=== PATIENT | male | born 1935 | race Caucasian/White ===

== ENCOUNTER 2018-02-18 15:54 | Observation (INO) ==
--- NOTE | 2018-02-18 16:43 | ED ---
HPI General Chief Complaint: Neck Pain/Injury Stated Complaint: Diff swallowing Time Seen by Provider: 02/18/18 16:35 Source: patient Mode of arrival: ambulatory Limitations: no limitations History of Present Illness HPI Narrative: 82-year-old male complains of neck pain and trouble with swallowing.Patient states that his symptoms started about 6 weeks ago. Patient states that he has discomfort and upper neck area and pain with swallowing. Patient states that he has lost about 20 pounds for the past month. Patient denies any fever chills. Patient denies any chest pain or shortness of breath. Patient denies abdominal pain. Patient denies any dysuria frequency. Patient denies any focal weakness or numbness of the extremity. Patient history has history of abdominal wall hernia after abdominal surgery in the past. Patient denies history hypertension, diabetes, hyperlipidemia. Patient is a non-smoker. Patient denies any history of chewing tobacco or alcohol abuse. Patient denies any blood or mucus in the stool. MD complaint: Reports neck pain Onset (ago): week(s) Place: Reports home Severity: moderate Severity scale (1-10): 5 Quality: Reports dull and aching Duration: constant Relieving factors: none Exacerbating factors: none Associated symptoms: Reports none Treatments prior to arrival: Reports none Related Data Home Medications Medication Instructions Recorded Confirmed tyrosine 500 mg PO DAILY 02/18/18 02/18/18 Previous Rx's Medication Instructions Recorded aspirin 162 mg PO DAILY 30 Days #60 tab 02/21/18 methylprednisolone [Medrol (Sunil)] 4 mg PO PER PKG DIR #1 ea 02/21/18 Allergies Allergy/AdvReac Type Severity Reaction Status Date / Time No Known Allergies Allergy Verified 02/18/18 16:21 Review of Systems ROS: all other systems reviewed are negative PMFSH Medical History Medical History Thyroid activity decreased (Acute) Social History Social History Substance History: No History of Abuse Second Hand Smoke Exposure: No Smoking Status: Never smoker How Often Do You Have a Drink Containing Alcohol: Monthly or less Recent Travel in [facility] within the Last 8 Weeks: No Recent Out of Country Travel within the Last 8 Weeks: No Immunization History Tetanus Immunization: >5 Years Exam Narrative Exam Narrative: GENERAL: Well-nourished, well-developed patient. SKIN: Focused skin assessment warm/dry. HEAD: Normocephalic. EYES: No scleral icterus. No injection or drainage. NECK: Supple, trachea midline. No JVD or lymphadenopathy.Patient had mild tenderness on palpation of the neck area. No obvious mass noted. CARDIOVASCULAR: Regular rate and rhythm without murmurs, gallops, or rubs. RESPIRATORY: Breath sounds equal bilaterally. No accessory muscle use. GASTROINTESTINAL: Abdomen soft, non-tender, nondistended. MUSCULOSKELETAL: No cyanosis, or edema. BACK: Nontender without obvious deformity. No CVA tenderness. Neurologic exam: Patient is awake and alert oriented x3. Patient moves all extremity well. No obvious focal neurologic deficit. Course Initial Documented Vital Signs Temperature 97.5 F L 02/18/18 15:58 Pulse Rate 81 02/18/18 15:58 Respiratory Rate 20 02/18/18 15:58 Blood Pressure 145/81 H 02/18/18 15:58 Pulse Oximetry 98 02/18/18 15:58 Last Documented Vital Signs Temperature 98.1 F 02/22/18 07:22 Pulse Rate 54 L 02/22/18 07:22 Respiratory Rate 20 02/22/18 07:22 Blood Pressure 173/74 H 02/22/18 07:22 Pulse Oximetry 96 02/22/18 07:22 Medical Decision Making MDM Narrative Medical decision making narrative: 82-year-old male with neck pain and weight loss recently. CT scan showed neck mass. I spoke with ENT, Dr. Hudson. Patient will admit to medical service and ENT consultation. Clindamycin 900 mg IV given. Decadron [address] Hudson advised clindamycin 900 mg IV every 8 hours and Decadron 8 mg every 8 hour. Medical Screen Exam Complete: Yes Emergency Medical Condition: Yes Differential Diagnosis Differential Diagnosis: Differential diagnosis including esophageal dysmotility , neck mass Lab Data Lab results reviewed: Yes I reviewed the patient's lab results. Result diagrams: 02/19/18 06:30 02/19/18 06:30 Lab Results 02/18/18 02/18/18 02/18/18 Range/Units 17:15 17:15 17:15 WBC (4.0-11.0) th/mm3 RBC (4.50-5.90) mil/mm3 Hgb (13.0-17.0) gm/dL Hct (39.0-51.0) % MCV (80.0-100.0) fL MCH (27.0-34.0) pg MCHC (32.0-36.0) % RDW (11.6-17.2) % Plt Count (150-450) th/mm3 MPV (7.0-11.0) fL Neut % (Auto) (16.0-70.0) % Lymph % (Auto) (9.0-44.0) % [place] % (Auto) (0.0-8.0) % Eos % (Auto) (0.0-4.0) % Baso % (Auto) (0.0-2.0) % Neut # (Auto) (1.8-7.7) th/mm3 Lymph # (Auto) (1.0-4.8) th/mm3 [place] # (Auto) (0.0-0.9) th/mm3 Eos # (Auto) (0.0-0.4) th/mm3 Baso # (Auto) (0.0-0.2) th/mm3 WBC Differential Differential Comment PT 10.5 (9.8-11.6) sec INR 1.0 Ratio Sodium (136-145) meq/L Potassium (3.5-5.1) meq/L Chloride (98-107) meq/L Carbon Dioxide (21.0-32.0) meq/L Anion Gap (5-15) meq/L BUN (7-18) mg/dL Creatinine (0.60-1.30) mg/dL Estimated GFR (>89) mL/min Random Glucose (74-106) mg/dL Calcium (8.5-10.1) mg/dL Phosphorus 2.8 (2.5-4.9) mg/dL Magnesium 2.3 (1.5-2.5) mg/dL Total Bilirubin (0.2-1.0) mg/dL AST (15-37) U/L ALT (12-78) U/L Alkaline Phosphatase (45-117) U/L Total Creatine Kinase 84 (39-308) U/L Troponin I (0.02-0.05) ng/mL B-Natriuretic Peptide 65 (0-100) pg/mL Total Protein (6.4-8.2) g/dL Albumin (3.4-5.0) g/dL Triglycerides (42-150) mg/dL Cholesterol (120-200) mg/dL LDL Cholesterol, Calc (0-99) mg/dL HDL Cholesterol (40.0-60.0) mg/dL Cholesterol/HDL Ratio Ratio Thiamine (70-180) nmol/L Vitamin B12 (193-986) pg/mL TSH 0.534 (0.358-3.740) uIU/mL Free T4 (0.76-1.46) ng/dL Urine Color (Yellw/Straw) Urine Clarity (Clear) Urine pH (5.0-8.5) Ur Specific [place] (1.002-1.035) Urine Protein (Neg-Trace) mg/dL Urine Glucose (UA) (Negative) mg/dL Urine Ketones (Negative) mg/dL Urine Occult Blood (Negative) Urine Nitrate (Negative) Urine Bilirubin (Negative) Urine Urobilinogen (Less than 2) mg/dL Ur Leukocyte Esterase (Negative) Urine RBC (0-3) /hpf Urine WBC (0-5) /hpf Micro UA Comment Ur Microscopic Review Urine Culture Comments Misc Test Result 02/18/18 02/18/18 02/18/18 Range/Units 17:15 17:15 18:40 WBC 8.4 (4.0-11.0) th/mm3 RBC 3.86 L (4.50-5.90) mil/mm3 Hgb 13.3 (13.0-17.0) gm/dL Hct 37.8 L (39.0-51.0) % MCV 98.0 (80.0-100.0) fL MCH 34.4 H (27.0-34.0) pg MCHC 35.1 (32.0-36.0) % RDW 13.0 (11.6-17.2) % Plt Count 197 (150-450) th/mm3 MPV 7.0 (7.0-11.0) fL Neut % (Auto) 62.2 (16.0-70.0) % Lymph % (Auto) 23.0 (9.0-44.0) % [place] % (Auto) 8.9 H (0.0-8.0) % Eos % (Auto) 5.3 H (0.0-4.0) % Baso % (Auto) 0.6 (0.0-2.0) % Neut # (Auto) 5.2 (1.8-7.7) th/mm3 Lymph # (Auto) 1.9 (1.0-4.8) th/mm3 [place] # (Auto) 0.8 (0.0-0.9) th/mm3 Eos # (Auto) 0.4 (0.0-0.4) th/mm3 Baso # (Auto) 0.1 (0.0-0.2) th/mm3 WBC Differential . Differential Comment Auto diff final PT (9.8-11.6) sec INR Ratio Sodium 139 (136-145) meq/L Potassium 4.2 (3.5-5.1) meq/L Chloride 103 (98-107) meq/L Carbon Dioxide 26.7 (21.0-32.0) meq/L Anion Gap 9 (5-15) meq/L BUN 18 (7-18) mg/dL Creatinine 1.31 H (0.60-1.30) mg/dL Estimated GFR 53 L (>89) mL/min Random Glucose 90 (74-106) mg/dL Calcium 9.7 (8.5-10.1) mg/dL Phosphorus (2.5-4.9) mg/dL Magnesium (1.5-2.5) mg/dL Total Bilirubin 0.3 (0.2-1.0) mg/dL AST 20 (15-37) U/L ALT 19 (12-78) U/L Alkaline Phosphatase 84 (45-117) U/L Total Creatine Kinase (39-308) U/L Troponin I Less than 0.02 L (0.02-0.05) ng/mL B-Natriuretic Peptide (0-100) pg/mL Total Protein 7.0 (6.4-8.2) g/dL Albumin 3.6 (3.4-5.0) g/dL Triglycerides (42-150) mg/dL Cholesterol (120-200) mg/dL LDL Cholesterol, Calc (0-99) mg/dL HDL Cholesterol (40.0-60.0) mg/dL Cholesterol/HDL Ratio Ratio Thiamine (70-180) nmol/L Vitamin B12 (193-986) pg/mL TSH (0.358-3.740) uIU/mL Free T4 (0.76-1.46) ng/dL Urine Color Yellow (Yellw/Straw) Urine Clarity Hazy H (Clear) Urine pH 5.0 (5.0-8.5) Ur Specific [place] 1.019 (1.002-1.035) Urine Protein Negative (Neg-Trace) mg/dL Urine Glucose (UA) Negative (Negative) mg/dL Urine Ketones Trace H (Negative) mg/dL Urine Occult Blood Negative (Negative) Urine Nitrate Negative (Negative) Urine Bilirubin Negative (Negative) Urine Urobilinogen Less than 2 (Less than 2) mg/dL Ur Leukocyte Esterase Negative (Negative) Urine RBC Less than 1 (0-3) /hpf Urine WBC 1 (0-5) /hpf Micro UA Comment Culture not ind Ur Microscopic Review Not Reportable Urine Culture Comments Culture not ind Misc Test Result 02/19/18 02/19/18 02/19/18 Range/Units 06:30 06:30 13:06 WBC 3.1 L D (4.0-11.0) th/mm3 RBC 3.94 L (4.50-5.90) mil/mm3 Hgb 13.4 (13.0-17.0) gm/dL Hct 37.8 L (39.0-51.0) % MCV 96.1 (80.0-100.0) fL MCH 33.9 (27.0-34.0) pg MCHC 35.3 (32.0-36.0) % RDW 12.9 (11.6-17.2) % Plt Count 212 (150-450) th/mm3 MPV 7.1 (7.0-11.0) fL Neut % (Auto) 73.1 H (16.0-70.0) % Lymph % (Auto) 25.0 (9.0-44.0) % [place] % (Auto) 1.6 (0.0-8.0) % Eos % (Auto) 0.1 (0.0-4.0) % Baso % (Auto) 0.2 (0.0-2.0) % Neut # (Auto) 2.3 (1.8-7.7) th/mm3 Lymph # (Auto) 0.8 L (1.0-4.8) th/mm3 [place] # (Auto) 0.0 (0.0-0.9) th/mm3 Eos # (Auto) 0.0 (0.0-0.4) th/mm3 Baso # (Auto) 0.0 (0.0-0.2) th/mm3 WBC Differential . Differential Comment Auto diff final PT (9.8-11.6) sec INR Ratio Sodium 136 (136-145) meq/L Potassium 4.4 (3.5-5.1) meq/L Chloride 103 (98-107) meq/L Carbon Dioxide 24.7 (21.0-32.0) meq/L Anion Gap 8 (5-15) meq/L BUN 15 (7-18) mg/dL Creatinine 1.06 (0.60-1.30) mg/dL Estimated GFR 67 L (>89) mL/min Random Glucose 179 H (74-106) mg/dL Calcium 9.9 (8.5-10.1) mg/dL Phosphorus (2.5-4.9) mg/dL Magnesium (1.5-2.5) mg/dL Total Bilirubin (0.2-1.0) mg/dL AST (15-37) U/L ALT (12-78) U/L Alkaline Phosphatase (45-117) U/L Total Creatine Kinase (39-308) U/L Troponin I Less than 0.02 L (0.02-0.05) ng/mL B-Natriuretic Peptide (0-100) pg/mL Total Protein (6.4-8.2) g/dL Albumin (3.4-5.0) g/dL Triglycerides 63 (42-150) mg/dL Cholesterol 143 (120-200) mg/dL LDL Cholesterol, Calc 87 (0-99) mg/dL HDL Cholesterol 43.8 (40.0-60.0) mg/dL Cholesterol/HDL Ratio 3.26 Ratio Thiamine (70-180) nmol/L Vitamin B12 (193-986) pg/mL TSH 0.200 L (0.358-3.740) uIU/mL Free T4 (0.76-1.46) ng/dL Urine Color (Yellw/Straw) Urine Clarity (Clear) Urine pH (5.0-8.5) Ur Specific [place] (1.002-1.035) Urine Protein (Neg-Trace) mg/dL Urine Glucose (UA) (Negative) mg/dL Urine Ketones (Negative) mg/dL Urine Occult Blood (Negative) Urine Nitrate (Negative) Urine Bilirubin (Negative) Urine Urobilinogen (Less than 2) mg/dL Ur Leukocyte Esterase (Negative) Urine RBC (0-3) /hpf Urine WBC (0-5) /hpf Micro UA Comment Ur Microscopic Review Urine Culture Comments Misc Test Result 02/20/18 02/20/18 02/20/18 Range/Units 09:10 09:10 15:50 WBC (4.0-11.0) th/mm3 RBC (4.50-5.90) mil/mm3 Hgb (13.0-17.0) gm/dL Hct (39.0-51.0) % MCV (80.0-100.0) fL MCH (27.0-34.0) pg MCHC (32.0-36.0) % RDW (11.6-17.2) % Plt Count (150-450) th/mm3 MPV (7.0-11.0) fL Neut % (Auto) (16.0-70.0) % Lymph % (Auto) (9.0-44.0) % [place] % (Auto) (0.0-8.0) % Eos % (Auto) (0.0-4.0) % Baso % (Auto) (0.0-2.0) % Neut # (Auto) (1.8-7.7) th/mm3 Lymph # (Auto) (1.0-4.8) th/mm3 [place] # (Auto) (0.0-0.9) th/mm3 Eos # (Auto) (0.0-0.4) th/mm3 Baso # (Auto) (0.0-0.2) th/mm3 WBC Differential Differential Comment PT (9.8-11.6) sec INR Ratio Sodium (136-145) meq/L Potassium (3.5-5.1) meq/L Chloride (98-107) meq/L Carbon Dioxide (21.0-32.0) meq/L Anion Gap (5-15) meq/L BUN (7-18) mg/dL Creatinine (0.60-1.30) mg/dL Estimated GFR (>89) mL/min Random Glucose (74-106) mg/dL Calcium (8.5-10.1) mg/dL Phosphorus (2.5-4.9) mg/dL Magnesium (1.5-2.5) mg/dL Total Bilirubin (0.2-1.0) mg/dL AST (15-37) U/L ALT (12-78) U/L Alkaline Phosphatase (45-117) U/L Total Creatine Kinase (39-308) U/L Troponin I (0.02-0.05) ng/mL B-Natriuretic Peptide (0-100) pg/mL Total Protein (6.4-8.2) g/dL Albumin (3.4-5.0) g/dL Triglycerides (42-150) mg/dL Cholesterol (120-200) mg/dL LDL Cholesterol, Calc (0-99) mg/dL HDL Cholesterol (40.0-60.0) mg/dL Cholesterol/HDL Ratio Ratio Thiamine 181 H (70-180) nmol/L Vitamin B12 1610 H (193-986) pg/mL TSH (0.358-3.740) uIU/mL Free T4 (0.76-1.46) ng/dL Urine Color ([place]/Straw) Urine Clarity (Clear) Urine pH (5.0-8.5) Ur Specific [place] (1.002-1.035) Urine Protein (Neg-Trace) mg/dL Urine Glucose (UA) (Negative) mg/dL Urine Ketones (Negative) mg/dL Urine Occult Blood (Negative) Urine Nitrate (Negative) Urine Bilirubin (Negative) Urine Urobilinogen (Less than 2) mg/dL Ur Leukocyte Esterase (Negative) Urine RBC (0-3) /hpf Urine WBC (0-5) /hpf Micro UA Comment Ur Microscopic Review Urine Culture Comments Misc Test Result 02/21/18 Range/Units 12:17 WBC (4.0-11.0) th/mm3 RBC (4.50-5.90) mil/mm3 Hgb (13.0-17.0) gm/dL Hct (39.0-51.0) % MCV (80.0-100.0) fL MCH (27.0-34.0) pg MCHC (32.0-36.0) % RDW (11.6-17.2) % Plt Count (150-450) th/mm3 MPV (7.0-11.0) fL Neut % (Auto) (16.0-70.0) % Lymph % (Auto) (9.0-44.0) % [place] % (Auto) (0.0-8.0) % Eos % (Auto) (0.0-4.0) % Baso % (Auto) (0.0-2.0) % Neut # (Auto) (1.8-7.7) th/mm3 Lymph # (Auto) (1.0-4.8) th/mm3 [place] # (Auto) (0.0-0.9) th/mm3 Eos # (Auto) (0.0-0.4) th/mm3 Baso # (Auto) (0.0-0.2) th/mm3 WBC Differential Differential Comment PT (9.8-11.6) sec INR Ratio Sodium (136-145) meq/L Potassium (3.5-5.1) meq/L Chloride (98-107) meq/L Carbon Dioxide (21.0-32.0) meq/L Anion Gap (5-15) meq/L BUN (7-18) mg/dL Creatinine (0.60-1.30) mg/dL Estimated GFR (>89) mL/min Random Glucose (74-106) mg/dL Calcium (8.5-10.1) mg/dL Phosphorus (2.5-4.9) mg/dL Magnesium (1.5-2.5) mg/dL Total Bilirubin (0.2-1.0) mg/dL AST (15-37) U/L ALT (12-78) U/L Alkaline Phosphatase (45-117) U/L Total Creatine Kinase (39-308) U/L Troponin I (0.02-0.05) ng/mL B-Natriuretic Peptide (0-100) pg/mL Total Protein (6.4-8.2) g/dL Albumin (3.4-5.0) g/dL Triglycerides (42-150) mg/dL Cholesterol (120-200) mg/dL LDL Cholesterol, Calc (0-99) mg/dL HDL Cholesterol (40.0-60.0) mg/dL Cholesterol/HDL Ratio Ratio Thiamine (70-180) nmol/L Vitamin B12 (193-986) pg/mL TSH (0.358-3.740) uIU/mL Free T4 1.05 (0.76-1.46) ng/dL Urine Color ([place]/Straw) Urine Clarity (Clear) Urine pH (5.0-8.5) Ur Specific [place] (1.002-1.035) Urine Protein (Neg-Trace) mg/dL Urine Glucose (UA) (Negative) mg/dL Urine Ketones (Negative) mg/dL Urine Occult Blood (Negative) Urine Nitrate (Negative) Urine Bilirubin (Negative) Urine Urobilinogen (Less than 2) mg/dL Ur Leukocyte Esterase (Negative) Urine RBC (0-3) /hpf Urine WBC (0-5) /hpf Micro UA Comment Ur Microscopic Review Urine Culture Comments [facility] Test Result Imaging Data Attestation: I personally reviewed and interpreted this imaging study as follows : Radiologist's impression: Carotid Doppler Study 02/18/18 00:00 CONCLUSION: 1. Occlusion of the left internal carotid artery. 2. Mild plaque at the right carotid bulb region. 3. Soft tissue mass in the left submandibular region and bilateral adenopathy. This is more fully described in the CT of the soft tissue neck. Chest X-Ray 02/18/18 16:35 CONCLUSION: Hiatal hernia. Clear lungs. Head MRI 02/18/18 16:35 CONCLUSION: 1. 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 2. 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 3. Acute abnormality is not clearly seen. 4. Scattered areas of increased signal within the cerebral white matter likely related to small vessel ischemic change. Soft Tissue Neck CT 02/18/18 16:35 CONCLUSION: Soft tissue density at the lingual tonsil level related to either enlarged tonsils or potentially a underlying mass/neoplasm. This appears to be directly inspected. There is bilateral adenopathy being worse on the left. Head CTA 02/19/18 00:00 CONCLUSION: 1. Occlusion of the left internal carotid artery with reconstitution of the left anterior circulation via a patent anterior indicating artery. There is however apparent focal concentric mild to moderate stenosis of the left proximal A1 segment. 2. 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 Head MRA 02/19/18 00:00 CONCLUSION: 1. Occlusion of the left internal carotid artery. 2. Areas of stenosis in the left A1 segment of the left anterior cerebral artery and the left M1 segment of the left middle cerebral artery. 3. Focal severe stenosis at the proximal left posterior cerebral artery. 4. There is an asymmetric and diminished flow in the left middle and posterior cerebral artery territories. Neck CTA 02/19/18 00:00 CONCLUSION: 1. Complete occlusion left internal carotid artery. 2. Mild narrowing of the right internal carotid artery suggesting 40-50 % stenosis. Lymph Node Biopsy Ultrasound 02/20/18 00:00 CONCLUSION: 1. Uncomplicated biopsy of left neck node Abdomen/Pelvis CT 02/20/18 13:10 CONCLUSION: 1. Moderate to large paraesophageal hiatal hernia. 2. Midline abdominal hernia. Hernia mesh is seen. The hernia appears to extend through the hernia mesh. The hernia contains bowel without signs of dilatation or thickening. 3. 4.6 cm cystic area seen at the right lateral margin of the hernia likely related to a hematoma or seroma. An abscess cannot be excluded but the rim does not appear thickened. 4. Prostatic enlargement. 5. Degenerative change. Chest CT 02/20/18 13:10 CONCLUSION: 1. Linear density at the lower lungs being more prominent on the right likely related to scarring or atelectasis. 2. Coronary artery calcifications. 3. Moderate to large paraesophageal hiatal hernia. Discharge Plan Discharge Disposition Patient Disposition: 01 Discharge Home Discharge Condition Condition: Fair Discharge Order Discharge Orders: Discharge Order (Routine); Ordered 02/22/18 Ordered By: Zoe Richardson Physicians Team ED Provider: Lucius Castellano Primary Care Provider: UNKNOWN, Attending Provider: [place] Other Providers: Jus Hudson ; James Guerrero ; Vaughn Rosenthal Status ED Status: Left Department Discharge Information Discharge Date/Time: 02/18/18 22:45
--- NOTE | 2018-02-18 17:13 | XR ---
EXAM DATE: 02/18/2018 4:35 PM EDT AGE/SEX: 82 years / Male INDICATIONS: Shortness of breath and difficulty swallowing. CLINICAL DATA: This is the patient's initial encounter. Patient reports that signs and symptoms have been present for 1 day and indicates a pain score of 5/10. MEDICAL/SURGICAL HISTORY: None. None. COMPARISON: No prior exams available for comparison. FINDINGS: A single AP view of the chest demonstrates the lungs to be symmetrically aerated without evidence of mass, infiltrate or effusion. A moderate-sized hiatal hernia. The cardiomediastinal contours are unr emarkable. Osseous structures are intact. CONCLUSION: Hiatal hernia. Clear lungs. Electronically signed by: Manuel Matias MD 02/18/2018 5:11 PM EDT
[2018-02-18] MEDS: Sod Chloride 0.9% Inj 1,000 ML IV.CONT SCH ×2 (17:15→23:41)
[2018-02-18 17:22] LABS: Baso # (Auto) 0.1 th/mm3 (0.0-0.2); Baso % (Auto) 0.6 % (0.0-2.0); Eos # (Auto) 0.4 th/mm3 (0.0-0.4); Eos % (Auto) 5.3 % (0.0-4.0); Hematocrit 37.8 % (39.0-51.0); Hemoglobin 13.3 gm/dL (13.0-17.0); Lymph # (Auto) 1.9 th/mm3 (1.0-4.8); Mean Corpuscular HGB Conc 35.1 % (32.0-36.0); Mean Corpuscular Hemoglobin 34.4 pg (27.0-34.0); Mono # (Auto) 0.8 th/mm3 (0.0-0.9); Mono % (Auto) 8.9 % (0.0-8.0); Neut # (Auto) 5.2 th/mm3 (1.8-7.7); Neut % (Auto) 62.2 % (16.0-70.0); Platelet Count 197 th/mm3 (150-450); Red Blood Count 3.86 mil/mm3 (4.50-5.90); White Blood Count 8.4 th/mm3 (4.0-11.0)
[2018-02-18 17:29] LABS: Prothrombin Time 10.5 sec (9.8-11.6)
[2018-02-18 17:39] LABS: Alkaline Phosphatase 84 U/L (45-117)
[2018-02-18 17:41] LABS: Alanine Aminotransferase 19 U/L (12-78); Albumin 3.6 g/dL (3.4-5.0); Anion Gap 9 meq/L (5-15); Aspartate Aminotransferase 20 U/L (15-37); Blood Urea Nitrogen 18 mg/dL (7-18); Calcium 9.7 mg/dL (8.5-10.1); Carbon Dioxide 26.7 meq/L (21.0-32.0); Chloride 103 meq/L (98-107); Glomerular Filtration Rate 53 mL/min (>89); Glucose,Random 90 mg/dL (74-106); Potassium 4.2 meq/L (3.5-5.1); Sodium 139 meq/L (136-145)
[2018-02-18 17:43] LABS: Thyroid Stimulating Hormone 0.534 uIU/mL (0.358-3.740)
[2018-02-18 17:48] LABS: Magnesium 2.3 mg/dL (1.5-2.5); Phosphorus 2.8 mg/dL (2.5-4.9)
--- NOTE | 2018-02-18 19:05 | CT ---
EXAM DATE: 02/18/2018 5:47 PM EDT AGE/SEX: 82 years / Male INDICATIONS: Throat pain for over a month. CLINICAL DATA: This is the patient's initial encounter. Patient reports that signs and symptoms have been present for 1 month and indicates a pain score of 4/10. MEDICAL/SURGICAL HISTORY: None. None. RADIATION DOSE: 15.14 CTDI (mGy) COMPARISON: No prior exams available for comparison. TECHNIQUE: Helical acquisition was performed using a multirow detector CT scanner during the adminis tration of 60 ml Omnipaque 350 (iohexol) nonionic water-soluble contrast as a single exam dose. Usi ng automated exposure control and adjustment of the mA and/or kV according to patient size, radiation dose was kept as low as reasonably achievable to obtain optimal diagnostic quality images. DICOM fo rmat image data is available electronically for review and comparison. FINDINGS: Nasopharynx: The nasopharyngeal airway has a normal configuration. No mucosal thickening or mass is seen. Oropharynx: There is increased soft tissue density seen at the tongue base and floor the mouth measu ring 4.0 x 2.1 x 2.5 cm. This is seen in the region of the lingual tonsil. Larynx: The supraglottic, glottic, and infraglottic structures are intact. Parapharyngeal: There adenopathy with areas of low density likely related to necrosis seen in the le ft parapharyngeal/anterior triangle region. Salivary Glands: The parotid and submandibular glands are intact. Lymph Nodes: Again noted is the adenopathy in the left parapharyngeal space and extending to the lef t anterior triangle. There is a prominent lymph node measuring 1 cm with low-density necrosis seen in the posterior triangle on the right at the level the hyoid. Thyroid: Homogeneous enhancement without evidence of nodule. Bones: There is degenerative change in the cervical spine. CONCLUSION: Soft tissue density at the lingual tonsil level related to either enlarged tonsils or potentially a u nderlying mass/neoplasm. This appears to be directly inspected. There is bilateral adenopathy being w orse on the left. Electronically signed by: Rickey Gao MD 02/18/2018 7:04 PM EDT
[2018-02-18 19:08] LABS: Bilirubin,Urine Negative (Negative); Clarity,Urine Hazy (Clear); Color,Urine Yellow (Yellw/Straw); Glucose,Urine (UA) Negative (Negative); Leukocyte Esterase,Urine Negative (Negative); Nitrite,Urine Negative (Negative); Specific Gravity,Urine 1.019 (1.002-1.035)
[2018-02-18] MEDS ORDERED: Clindamycin 900 mg/NS Premix 900 MG/50 ML PIGGYBACK IV.SIG ONE (20:01)
--- NOTE | 2018-02-18 20:02 | ECG ---
Date Performed: 02/18/2018 Time Performed: 17:18:16 PTAGE: 82 years EKG: SINUS BRADYCARDIA WITH FIRST DEGREE AV BLOCK BORDERLINE LEFT AXIS DEVIATION ABNORMAL ECG NO PREVIOUS TRACING DOCTOR: Arnel Noe Interpretating Date/Time 02/18/2018 20:00:26
--- NOTE | 2018-02-18 20:16 | MR ---
EXAM DATE: 02/18/2018 7:11 PM EDT AGE/SEX: 82 years / Male INDICATIONS: CVA. Difficulty swallowing. Neck pains with headaches. CLINICAL DATA: This is the patient's initial encounter. Patient reports that signs and symptoms have been present for 1 day and indicates a pain score of 0/10. MEDICAL/SURGICAL HISTORY: Hiatal hernia. . Hernia, Ear Drum COMPARISON: No prior exams available for comparison. TECHNIQUE: Multiplanar, multisequence examination of the brain was performed without contrast. FINDINGS: Cerebrum: The ventricles are normal for age. There is focal signal abnormality in the posterior lef t occipital lobe. This likely related related to some degree of encephalomalacia. There is some minim al increased signal within this region on the diffusion-weighted images likely related to T2 shine th rough phenomenon. The signal abnormality is much more prominent on the T2 and FLAIR images. No eviden ce of midline shift, mass lesion, hemorrhage or acute infarction. No extraaxial fluid collections ar e seen. The pituitary gland and suprasellar cistern are normal in configuration. A normal signal voi d is not seen in the left internal carotid artery. White Matter: There are scattered areas of increased signal seen in the cerebral white matter on the FLAIR images. Posterior Fossa: The cerebellum and brainstem are intact. The 4th ventricle is midline. The cerebel lopontine angle is unremarkable. The cerebellar tonsils are normal in position. Diffusion Imaging: No focal areas of restricted diffusion are seen. No evidence of acute infarction . Extracranial: The visualized portions of the orbits and paranasal sinuses are unremarkable. CONCLUSION: 1. 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 2. 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 3. Acute abnormality is not clearly seen. 4. Scattered areas of increased signal within the cerebral white matter likely related to small vess el ischemic change. Electronically signed by: Rickey Gao MD 02/18/2018 8:14 PM EDT
[2018-02-18] MEDS ORDERED: Acetaminophen 325 MG Tablet PO PRN (20:55)
[2018-02-18] MEDS ORDERED: Bisacodyl 10 MG Supp RECTAL PRN (20:55)
[2018-02-18] MEDS ORDERED: Morphine Inj 4 MG/ML Vial IV.PUSH PRN (20:55)
--- NOTE | 2018-02-18 21:08 | P.HP ---
History of Present Illness Service: [facility] Primary Care Physician: UNKNOWN History of Present Illness: 82-year-old male with a past medical history significant for hypothyroidism presents to the emergency department for the evaluation of a sore throat with neck swelling that has been going on for approximately 8 weeks. He also reports a 20 pound weight loss with associated anorexia since that time. He reports that he is able to swallow without difficulty. He denies any difficulty breathing or shortness of breath. No chest pain. No abdominal pain. No nausea/vomiting/diarrhea. No fever/chills. No lateralizing signs/ symptoms. Inpatient Certification: I certify that the inpatient services were ordered in accordance with Medicare regulations governing the order. This includes certification that hospital inpatient services are reasonable and necessary and in the case of services not specified as inpatient-only under 42 CFR 419.22(n), that they are appropriately provided as inpatient services in accordance to with the 2-midnight benchmark under 43 CFR 412.3(e) Review of Systems All other systems reviewed negative except as stated in HPI [facility] - History History Provided By: Patient - Medical History Medical History: Medical History (Last Reviewed 02/18/18 @ 20:57 by Mari Mcrae MD) Thyroid activity decreased - Surgical History Surgical History: Surgical History (Last Updated 02/18/18 @ 20:58 by Mari Mcrae MD) History of repair of hiatal hernia - Family History Family History: Family History (Last Updated 02/18/18 @ 20:58 by Mari Mcrae MD) Other Coronary artery disease Diabetes mellitus - Tobacco History Second Hand Smoke Exposure: No Smoking Status: Never smoker - Alcohol History How Often Do You Have a Drink Containing Alcohol: Monthly or less - Immunization History Tetanus Immunization: >5 Years Medications and Allergies Active Medications: Active Medications Sodium Chloride (Ns Inj) 1,000 mls @ 125 mls/hr IV.CONT .Q8H [facility] Last Admin: 02/18/18 17:15 Dose: 125 mls/hr Allergies Allergy/AdvReac Type Severity Reaction Status Date / Time No Known Allergies Allergy Verified 02/18/18 16:21 Home Medications Medication Instructions Recorded Confirmed Type tyrosine 500 mg PO DAILY 02/18/18 02/18/18 History Exam Vital signs: Vital Signs 02/18/18 15:58 02/18/18 18:51 Temperature 97.5 F L Pulse Rate 81 Respiratory Rate 20 Blood Pressure 145/81 H Pulse Oximetry 98 99 Intake & Output 02/18/18 02/18/18 02/19/18 06:59 18:59 06:59 Weight 80 kg Narrative: Gen.: No acute distress Head: Normocephalic. Atraumatic. EENT: Pupils equal round and reactive to light. Nose without drainage. Airway intact. Throat without injection. Cardiovascular: Regular rate and rhythm. No murmurs, rubs or gallops. Respiratory: Lungs clear to auscultation bilaterally. No wheezes or rhonchi. Abdomen: Soft, nontender, nondistended. No peritoneal signs. Musculoskeletal: No gross deformities. No edema. Skin: No obvious rashes or erythema. Neuro: Sensory and motor grossly intact. Cranial nerves II through XII grossly intact. Results - Labs CBC & Chem 7: 02/18/18 17:15 02/18/18 17:15 Labs: Laboratory Results - last 24 hr 02/18/18 02/18/18 02/18/18 17:15 17:15 17:15 WBC RBC Hgb Hct MCV MCH MCHC RDW Plt Count MPV Neut % (Auto) Lymph % (Auto) [place] % (Auto) Eos % (Auto) Baso % (Auto) Neut # (Auto) Lymph # (Auto) [place] # (Auto) Eos # (Auto) Baso # (Auto) WBC Differential Differential Comment PT 10.5 INR 1.0 Sodium Potassium Chloride Carbon Dioxide Anion Gap BUN Creatinine Estimated GFR Random Glucose Calcium Phosphorus 2.8 Magnesium 2.3 Total Bilirubin AST ALT Alkaline Phosphatase Total Creatine Kinase 84 Troponin I B-Natriuretic Peptide 65 Total Protein Albumin TSH 0.534 Urine Color Urine Clarity Urine pH Ur Specific [place] Urine Protein Urine Glucose (UA) Urine Ketones Urine Occult Blood Urine Nitrate Urine Bilirubin Urine Urobilinogen Ur Leukocyte Esterase Urine RBC Urine WBC Micro UA Comment Ur Microscopic Review Urine Culture Comments 02/18/18 02/18/18 02/18/18 17:15 17:15 18:40 WBC 8.4 RBC 3.86 L Hgb 13.3 Hct 37.8 L MCV 98.0 MCH 34.4 H MCHC 35.1 RDW 13.0 Plt Count 197 MPV 7.0 Neut % (Auto) 62.2 Lymph % (Auto) 23.0 [place] % (Auto) 8.9 H Eos % (Auto) 5.3 H Baso % (Auto) 0.6 Neut # (Auto) 5.2 Lymph # (Auto) 1.9 [place] # (Auto) 0.8 Eos # (Auto) 0.4 Baso # (Auto) 0.1 WBC Differential . Differential Comment Auto diff final PT INR Sodium 139 Potassium 4.2 Chloride 103 Carbon Dioxide 26.7 Anion Gap 9 BUN 18 Creatinine 1.31 H Estimated GFR 53 L Random Glucose 90 Calcium 9.7 Phosphorus Magnesium Total Bilirubin 0.3 AST 20 ALT 19 Alkaline Phosphatase 84 Total Creatine Kinase Troponin I Less than 0.02 L B-Natriuretic Peptide Total Protein 7.0 Albumin 3.6 TSH Urine Color Yellow Urine Clarity Hazy H Urine pH 5.0 Ur Specific [place] 1.019 Urine Protein Negative Urine Glucose (UA) Negative Urine Ketones Trace H Urine Occult Blood Negative Urine Nitrate Negative Urine Bilirubin Negative Urine Urobilinogen Less than 2 Ur Leukocyte Esterase Negative Urine RBC Less than 1 Urine WBC 1 Micro UA Comment Culture not ind Ur Microscopic Review Not Reportable Urine Culture Comments Culture not ind - Imaging Impressions Chest X-Ray 02/18/18 16:35 CONCLUSION: Hiatal hernia. Clear lungs. Head MRI 02/18/18 16:35 CONCLUSION: 1. 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 2. 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 3. Acute abnormality is not clearly seen. 4. Scattered areas of increased signal within the cerebral white matter likely related to small vessel ischemic change. Soft Tissue Neck CT 02/18/18 16:35 CONCLUSION: Soft tissue density at the lingual tonsil level related to either enlarged tonsils or potentially a underlying mass/neoplasm. This appears to be directly inspected. There is bilateral adenopathy being worse on the left. Caprini VTE Risk Assessment Caprini VTE Risk Assessment: Moderate/High Risk (score >= 2) Caprini Risk Assessment Model: Point Value = 1 Point Value = 2 Point Value = 3 Point Value = 5 Age 41-60 Minor surgery BMI > 25 kg/m2 Swollen legs Varicose veins or History of unexplained or recurrent spontaneous Oral contraceptives or hormone replacement Sepsis (< 1 month) Serious lung disease, including pneumonia (< 1 month) Abnormal pulmonary function Acute myocardial infarction Congestive heart failure (< 1 month) History of inflammatory bowel disease Medical patient at bed rest Age 61-74 Arthroscopic surgery Major open surgery (> 45 min) Laparoscopic surgery (> 45 min) Malignancy Confined to bed (> 72 hours) Immobilizing plaster cast Central venous access Age >= 75 History of VTE Family history of VTE Factor V Leiden Prothrombin [id number] Lupus anticoagulant Anticardiolipin antibodies Elevated serum homocysteine Heparin-induced thrombocytopenia Other congenital or acquired thrombophilia Stroke (< 1 month) Elective arthroplasty Hip, pelvis, or leg fracture Acute spinal cord injury (< 1 month) Prophylaxis Regimen: Total Risk Factor Score Risk Level Prophylaxis Regimen 0-1 Low Early ambulation 2 Moderate Order ONE of the following: *Sequential Compression Device (SCD) *Heparin 5000 units SQ BID 3-4 Higher Order ONE of the following medications: *Heparin 5000 units SQ TID *Enoxaparin/Lovenox 40 mg SQ daily (WT < 150 kg, CrCl > 30 mL/min) *Enoxaparin/Lovenox 30 mg SQ daily (WT < 150 kg, CrCl > 10-29 mL/min) *Enoxaparin/Lovenox 30 mg SQ BID (WT < 150 kg, CrCl > 30 mL/min) AND/OR *Sequential Compression Device (SCD) 5 or more Highest Order ONE of the following medications: *Heparin 5000 units SQ TID (Preferred with Epidurals) *Enoxaparin/Lovenox 40 mg SQ daily (WT < 150 kg, CrCl > 30 mL/min) *Enoxaparin/Lovenox 30 mg SQ daily (WT < 150 kg, CrCl > 10-29 mL/min) *Enoxaparin/Lovenox 30 mg SQ BID (WT < 150 kg, CrCl > 30 mL/min) AND *Sequential Compression Device (SCD) Assessment and Plan - Plan Assessment/plan: 1. Tonsillar mass CT of the neck showed a soft tissue density at the lingual tonsil level related either to enlarged tonsils or potentially an underlying mass/neoplasm ENT consulted, appreciate assistance Decadron and clindamycin per ENT recommendations 2. 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 CHRISSIE Cr 1.31, baseline unknown IVF hydration Monitor renal function 4. Hypothyroidism No currently taking home medications FEN NPO Electrolytes: Monitor and replete. NS at 125 cc/hour Holding pharmacologic anticoagulation for possible biopsy
--- NOTE | 2018-02-18 22:35 | US ---
EXAM DATE: 02/18/2018 12:00 AM EDT AGE/SEX: 82 years / Male INDICATIONS: CVA and suspected ICA occlusion on prior MR exam. CLINICAL DATA: This is the patient's initial encounter. Patient reports that signs and symptoms have been present for 2 months and indicates a pain score of 8/10. MEDICAL/SURGICAL HISTORY: Hypothyroidism. Hiatal hernia. . Hiatal hernia repair. COMPARISON: No prior exams available for comparison. VELOCITY PARAMETERS: ICA/CCA Ratio: Right 1.61 , Left N/A ICA: Right 116 cm/sec, Left Occluded. cm/sec CCA: Right 72 cm/sec, Left 82 cm/sec ECA: Right 160 cm/sec, Left 133 cm/sec Vertebral: Right 33 cm/sec antegrade, Left 80 cm/sec antegrade FINDINGS: Right Carotid: Mild arteriosclerotic plaque is visualized.The waveforms are within normal limits. Left Carotid: There is occlusion of the left internal carotid artery. Other: Prominent lymph nodes are seen bilaterally measuring up to 1.8 cm. There appears to be a soft tissue mass of the submandibular region. CONCLUSION: 1. Occlusion of the left internal carotid artery. 2. Mild plaque at the right carotid bulb region. 3. Soft tissue mass in the left submandibular region and bilateral adenopathy. This is more fully de scribed in the CT of the soft tissue neck. Electronically signed by: Rickey Gao MD 02/18/2018 10:34 PM EDT
[2018-02-18] MEDS: Senna/Docusate Sodium 8.6/50 MG Tablet PO SCH (23:43)
[2018-02-19] MEDS: Clindamycin 900 mg/NS Premix 900 MG/50 ML PIGGYBACK IV.SIG SCH ×3 (04:06→20:43)
[2018-02-19] MEDS: Sod Chloride 0.9% Inj 1,000 ML IV.CONT SCH ×4 (05:29→18:25)
[2018-02-19 07:35] LABS: Baso % (Auto) 0.2 % (0.0-2.0); Eos % (Auto) 0.1 % (0.0-4.0); Hematocrit 37.8 % (39.0-51.0); Hemoglobin 13.4 gm/dL (13.0-17.0); Lymph # (Auto) 0.8 th/mm3 (1.0-4.8); Mean Corpuscular HGB Conc 35.3 % (32.0-36.0); Mean Corpuscular Hemoglobin 33.9 pg (27.0-34.0); Mean Corpuscular Volume 96.1 fL (80.0-100.0); Mean Platelet Volume 7.1 fL (7.0-11.0); Mono % (Auto) 1.6 % (0.0-8.0); Neut # (Auto) 2.3 th/mm3 (1.8-7.7); Neut % (Auto) 73.1 % (16.0-70.0); Platelet Count 212 th/mm3 (150-450); Red Blood Count 3.94 mil/mm3 (4.50-5.90); Red Cell Distribution Width 12.9 % (11.6-17.2); White Blood Count 3.1 th/mm3 (4.0-11.0)
[2018-02-19 08:09] LABS: Calcium 9.9 mg/dL (8.5-10.1); Carbon Dioxide 24.7 meq/L (21.0-32.0); Potassium 4.4 meq/L (3.5-5.1)
[2018-02-19] MEDS: Senna/Docusate Sodium 8.6/50 MG Tablet PO SCH ×2 (09:43→20:44)
--- NOTE | 2018-02-19 09:43 | P.PNIM ---
Subjective Interval history: f/u; tonsillar mass in no acute distress. looks comfortable. complaining of some sore throat. no fever. Physical Exam Vital signs: Vital Signs 02/18/18 15:58 02/18/18 18:51 02/18/18 20:00 Temperature 97.5 F L Pulse Rate 81 Respiratory Rate 20 Blood Pressure 145/81 H Pulse Oximetry 98 99 97 02/18/18 23:54 02/19/18 00:00 02/19/18 03:42 Temperature 98.0 F 98.6 F 98.5 F Pulse Rate 63 61 62 Respiratory Rate 18 18 18 Blood Pressure 170/86 H 144/66 H 175/73 H Pulse Oximetry 97 94 L 93 L 02/19/18 07:59 Temperature 97.5 F L Pulse Rate 57 L Respiratory Rate 16 Blood Pressure 165/73 H Pulse Oximetry 97 Intake & Output 02/18/18 02/19/18 02/19/18 18:59 06:59 18:59 Intake Total 1600 / 1600 Balance 1600 / 1600 Weight 80 kg 79.832 kg Intake: IV 1600 / 1600 NS Inj 1,000 ML @ 100 mls/hr IV 1500 / 1500 .CONT .Q10H [facility] Rx#:[id number] Cleocin 900 mg/NS Premix 900 mg 100 / 100 In 50 ml @ 100 mls/hr IV.SIG Q8H [facility] Rx#:[id number] Oral 0 / 0 Other: # Voids 2 Weight On Admission 79.832 kg - Constitutional no acute distress - Routine Respiratory Exam Present: CTA bilaterally - Routine Cardiovascular Exam Present: RRR - Routine Abdominal Exam Present: soft - Routine Extremities Exam Comments: no pedal edema. - Routine Neurological Exam Present: alert, oriented X3 Results - Labs CBC & Chem 7: 02/19/18 06:30 02/19/18 06:30 Laboratory Results - last 24 hr 02/18/18 02/18/18 02/18/18 17:15 17:15 17:15 WBC RBC Hgb Hct MCV MCH MCHC RDW Plt Count MPV Neut % (Auto) Lymph % (Auto) [place] % (Auto) Eos % (Auto) Baso % (Auto) Neut # (Auto) Lymph # (Auto) [place] # (Auto) Eos # (Auto) Baso # (Auto) WBC Differential Differential Comment PT 10.5 INR 1.0 Sodium Potassium Chloride Carbon Dioxide Anion Gap BUN Creatinine Estimated GFR Random Glucose Calcium Phosphorus 2.8 Magnesium 2.3 Total Bilirubin AST ALT Alkaline Phosphatase Total Creatine Kinase 84 Troponin I B-Natriuretic Peptide 65 Total Protein Albumin TSH 0.534 Urine Color Urine Clarity Urine pH Ur Specific [place] Urine Protein Urine Glucose (UA) Urine Ketones Urine Occult Blood Urine Nitrate Urine Bilirubin Urine Urobilinogen Ur Leukocyte Esterase Urine RBC Urine WBC Micro UA Comment Ur Microscopic Review Urine Culture Comments 02/18/18 02/18/18 02/18/18 17:15 17:15 18:40 WBC 8.4 RBC 3.86 L Hgb 13.3 Hct 37.8 L MCV 98.0 MCH 34.4 H MCHC 35.1 RDW 13.0 Plt Count 197 MPV 7.0 Neut % (Auto) 62.2 Lymph % (Auto) 23.0 [place] % (Auto) 8.9 H Eos % (Auto) 5.3 H Baso % (Auto) 0.6 Neut # (Auto) 5.2 Lymph # (Auto) 1.9 [place] # (Auto) 0.8 Eos # (Auto) 0.4 Baso # (Auto) 0.1 WBC Differential . Differential Comment Auto diff final PT INR Sodium 139 Potassium 4.2 Chloride 103 Carbon Dioxide 26.7 Anion Gap 9 BUN 18 Creatinine 1.31 H Estimated GFR 53 L Random Glucose 90 Calcium 9.7 Phosphorus Magnesium Total Bilirubin 0.3 AST 20 ALT 19 Alkaline Phosphatase 84 Total Creatine Kinase Troponin I Less than 0.02 L B-Natriuretic Peptide Total Protein 7.0 Albumin 3.6 TSH Urine Color Yellow Urine Clarity Hazy H Urine pH 5.0 Ur Specific [place] 1.019 Urine Protein Negative Urine Glucose (UA) Negative Urine Ketones Trace H Urine Occult Blood Negative Urine Nitrate Negative Urine Bilirubin Negative Urine Urobilinogen Less than 2 Ur Leukocyte Esterase Negative Urine RBC Less than 1 Urine WBC 1 Micro UA Comment Culture not ind Ur Microscopic Review Not Reportable Urine Culture Comments Culture not ind 02/19/18 02/19/18 06:30 06:30 WBC 3.1 L D RBC 3.94 L Hgb 13.4 Hct 37.8 L MCV 96.1 MCH 33.9 MCHC 35.3 RDW 12.9 Plt Count 212 MPV 7.1 Neut % (Auto) 73.1 H Lymph % (Auto) 25.0 [place] % (Auto) 1.6 Eos % (Auto) 0.1 Baso % (Auto) 0.2 Neut # (Auto) 2.3 Lymph # (Auto) 0.8 L [place] # (Auto) 0.0 Eos # (Auto) 0.0 Baso # (Auto) 0.0 WBC Differential . Differential Comment Auto diff final PT INR Sodium 136 Potassium 4.4 Chloride 103 Carbon Dioxide 24.7 Anion Gap 8 BUN 15 Creatinine 1.06 Estimated GFR 67 L Random Glucose 179 H Calcium 9.9 Phosphorus Magnesium Total Bilirubin AST ALT Alkaline Phosphatase Total Creatine Kinase Troponin I B-Natriuretic Peptide Total Protein Albumin TSH Urine Color Urine Clarity Urine pH Ur Specific [place] Urine Protein Urine Glucose (UA) Urine Ketones Urine Occult Blood Urine Nitrate Urine Bilirubin Urine Urobilinogen Ur Leukocyte Esterase Urine RBC Urine WBC Micro UA Comment Ur Microscopic Review Urine Culture Comments - Imaging Impressions Carotid Doppler Study 02/18/18 00:00 CONCLUSION: 1. Occlusion of the left internal carotid artery. 2. Mild plaque at the right carotid bulb region. 3. Soft tissue mass in the left submandibular region and bilateral adenopathy. This is more fully described in the CT of the soft tissue neck. Chest X-Ray 02/18/18 16:35 CONCLUSION: Hiatal hernia. Clear lungs. Head MRI 02/18/18 16:35 CONCLUSION: 1. 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 2. 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 3. Acute abnormality is not clearly seen. 4. Scattered areas of increased signal within the cerebral white matter likely related to small vessel ischemic change. Soft Tissue Neck CT 02/18/18 16:35 CONCLUSION: Soft tissue density at the lingual tonsil level related to either enlarged tonsils or potentially a underlying mass/neoplasm. This appears to be directly inspected. There is bilateral adenopathy being worse on the left. Assessment and Plan - Plan 1. Tonsillar mass CT of the neck showed a soft tissue density at the lingual tonsil level related either to enlarged tonsils or potentially an underlying mass/neoplasm ENT consulted, appreciate assistance Decadron and clindamycin per ENT recommendations 2. 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 CHRISSIE- improved. Cr 1.31, baseline unknown IVF hydration Monitor renal function 4. Hypothyroidism No currently taking home medications FEN NPO Electrolytes: Monitor and replete. NS at 80 cc/hour Holding pharmacologic anticoagulation -pending ENT evaluation.
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
--- NOTE | 2018-02-19 13:10 | CT ---
EXAM DATE: 02/19/2018 11:49 AM EDT AGE/SEX: 82 years / Male INDICATIONS: Head and neck pain. CLINICAL DATA: This is the patient's initial encounter. Patient reports that signs and symptoms have been present for 1 day and indicates a pain score of 5/10. MEDICAL/SURGICAL HISTORY: Hiatal hernia. . Hiatal hernia repair. RADIATION DOSE: 9.87 CTDI (mGy) ; Combined studies [place] [facility] [place], 02/18/2018. . TECHNIQUE: Volumetric scanning was performed using a multi-row detector CT scanner during bolus infu kyung of 60 ml Omnipaque 350 (iohexol) nonionic water-soluble contrast as a cumulative dose for multi ple exams. The data was post processed with a variety of visualization algorithms including full vo lume maximum intensity projection, multi-planar sliding thin slab reformation, curved planar reformat ion, and surface rendering techniques. Using automated exposure control and adjustment of the mA and /or kV according to patient size, radiation dose was kept as low as reasonably achievable to obtain o ptimal diagnostic quality images. DICOM format image data is available electronically for review and comparison. FINDINGS: Anterior Circulation: Intracranial Carotid Arteries: Left internal carotid artery is occluded. TEVIN: Focal concentric pfen-zq-cpuhybop stenosis of the left proximal A1 segment. MCA: Opacification of the left TEVIN and MCA branches likely via the anterior communicating artery. Ove rall, density of contrast in the left anterior branches is decreased and MCA branches are smaller in caliber. There is no evidence for aneurysm, vessel truncation or stenosis, and no evidence for vascul ar malformation. Posterior Circulation: Distal Vertebral Arteries: Asymmetrical distal vertebral arteries with small caliber right vertebral artery which likely terminates in PICA. Basilar Artery: Small caliber basilar artery without significant flow-limiting stenosis or aneurysm. DEPUTY DIRECTOR and Cerebellar Branches: Posterior cerebral artery branches are small in caliber with suspected a t least moderate to severe stenosis of the left DEPUTY DIRECTOR origin. CONCLUSION: 1. Occlusion of the left internal carotid artery with reconstitution of the left anterior circulatio n via a patent anterior indicating artery. There is however apparent focal concentric mild to moderat e stenosis of the left proximal A1 segment. 2. 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 Electronically signed by: Harshil Patino MD 02/19/2018 1:09 PM EDT
[2018-02-19] MEDS: Aspirin 325 MG Tablet PO SCH (13:21)
--- NOTE | 2018-02-19 13:33 | CT ---
EXAM DATE: 02/19/2018 11:50 AM EDT AGE/SEX: 82 years / Male INDICATIONS: Head and neck pain. CLINICAL DATA: This is the patient's initial encounter. Patient reports that signs and symptoms have been present for 1 day and indicates a pain score of 5/10. MEDICAL/SURGICAL HISTORY: Hiatal hernia. . Hiatal hernia repair. RADIATION DOSE: 9.87 CTDI (mGy) ; Combined studies COMPARISON: [facility] [place]FT [place]ISSUE [place]ECK W CONTRAST, 02/18/2018. . TECHNIQUE: Volumetric scanning was performed using a multirow detector CT scanner during bolus infus ion of 60 ml Omnipaque 350 (iohexol) nonionic water-soluble contrast as a cumulative dose for multip le exams. The data was postprocessed with a variety of visualization algorithms including full-volu me maximum intensity projection, multiplanar sliding thin-slab reformation, curved-planar reformation , and surface-rendering techniques. Using automated exposure control and adjustment of the mA and/or kV according to patient size, radiation dose was kept as low as reasonably achievable to obtain opti mal diagnostic quality images. DICOM format image data is available electronically for review and co mparison. FINDINGS: Aortic Arch: There is a three-vessel origin of the great vessels from the aorta. No evidence of ost ial narrowing Right Carotid: The common carotid artery is intact. Mild plaque within the proximal right internal c arotid artery/bulb demonstrating some mild narrowing. The external carotid artery is intact. Left Carotid: The common carotid artery is intact. Complete occlusion left internal carotid artery. The external carotid artery is intact. Vertebrals: Dominant left vertebral artery. No stenotic lesions are seen. Percent stenosis is calculated using the diameter of the stenotic region over the diameter of the nor mal distal internal carotid artery. CONCLUSION: 1. Complete occlusion left internal carotid artery. 2. Mild narrowing of the right internal carotid artery suggesting 40-50 % stenosis. Electronically signed by: Bhavesh Rodriguez MD 02/19/2018 1:32 PM EDT
[2018-02-19 13:52] LABS: Cholesterol 143 mg/dL (120-200)
[2018-02-19 14:00] LABS: Chol/HDL Ratio 3.26 Ratio; HDL Cholesterol 43.8 mg/dL (40.0-60.0); LDL Cholesterol,Calculated 87 mg/dL (0-99); Triglycerides 63 mg/dL (42-150)
--- NOTE | 2018-02-19 16:26 | MG ---
cc: Latosha Levine MD ELECTROENCEPHALOGRAM NUMBER: [id number] REFERRING PHYSICIAN: James Allen MD . With photic stimulation; awake, drowsy and sleep study. Admitted with neck pain, trouble swallowing, weight loss, history of hiatal hernia. On clindamycin, aspirin, Decadron. There is no MRI report. DESCRIPTION OF RECORD: The patient has an overall background rhythm of 7-8 Hz. Overall, fairly symmetrical and a lot of artifact. No epileptiform features seen. Photic stimulation with a mild driving response. IMPRESSION: Overall, normal appearing study. At times, some slowing may be due to somnolence, but minimal slowing at best. I do not appreciate any epileptiform features. Clinical correlation. Latosha Levine MD DF/lh/ll , 03:11 PM , 03:16 PM
--- NOTE | 2018-02-19 16:26 | ECHRPT ---
Indication: CVA / TIA CONCLUSIONS Normal left ventricular size. Mild concentric left ventricular hypertrophy. The left ventricular systolic function is normal with an estimated ejection fraction in the range of 55-60%. Grade 1 diastolic dysfunction. Calcification of the non-coronary cusp. Mild aortic valve regurgitation. The estimated pulmonary arterial pressure is 30 mmHg. The inferior vena cava was not well visualized. The intra-atrial septum was not well visualized secondary to suboptimal subcostal imaging. If a cardioembolic etiology is suspected, would recommend a TRUDY. BP: / HR: Rhythm: MEASUREMENTS (Male / Female) Normal Values Technical Quality:Fair 2D ECHO LV Diastolic Diameter PLAX 5.1 cm 4.2 - 5.9 / 3.9 - 5.3 cm LV Systolic Diameter PLAX 3.2 cm IVS Diastolic Thickness 1.1 cm 0.6 - 1.0 / 0.6 - 0.9 cm LVPW Diastolic Thickness 1.1 cm 0.6 - 1.0 / 0.6 - 0.9 cm LV Relative Wall Thickness 0.4 RV Internal Dim ED PLAX 2.3 cm LVOT Diameter 2.2 cm Aortic Root Diameter 3.3 cm LA Systolic Diameter LX 3.5 cm 3.0 - 4.0 / 2.7 - 3.8 cm DOPPLER AV Peak Velocity 110.0 cm/s AV Peak Gradient 4.8 mmHg AI Peak Velocity 382.0 cm/s AI Peak Gradient 58.4 mmHg AI Pressure Half Time 693.0 ms LVOT Peak Velocity 99.7 cm/s LVOT Peak Gradient 4.0 mmHg AV Area Cont Eq pk 3.4 cm Mitral E Point Velocity 66.1 cm/s Mitral A Point Velocity 115.0 cm/s Mitral E to A Ratio 0.6 LV E' Lateral Velocity 8.1 cm/s Mitral E to LV E' Lateral Ratio 8.2 LV E' Septal Velocity 6.1 cm/s Mitral E to LV E' Septal Ratio 10.8 TR Peak Velocity 223.0 cm/s TR Peak Gradient 19.9 mmHg Right Atrial Pressure 10.0 mmHg Pulmonary Artery Systolic Pressu 29.9 mmHg Right Ventricular Systolic Press 29.9 mmHg PV Peak Velocity 67.9 cm/s PV Peak Gradient 1.8 mmHg FINDINGS LEFT VENTRICLE Normal left ventricular size. Mild concentric left ventricular hypertrophy. The left ventricular systolic function is normal with an estimated ejection fraction in the range of 55-60%. RIGHT VENTRICLE Normal right ventricular size and systolic function. LEFT ATRIUM The left atrial size is normal. RIGHT ATRIUM The right atrial size is normal. AORTA The aortic root and proximal ascending aorta are normal in size on limited imaging. MITRAL VALVE Trace mitral valve regurgitation. AORTIC VALVE Trileaflet aortic valve. Calcification of the non-coronary cusp. Mild aortic valve regurgitation. TRICUSPID VALVE There is trace tricuspid valve regurgitation. The estimated pulmonary arterial pressure is 30 mmHg. PULMONARY VALVE Trivial pulmonary valve regurgitation. VESSELS The inferior vena cava was not well visualized. PERICARDIUM No pericardial effusion. Blake Benites MD (Electronically Signed) Final Date:19 February 2018 16:24
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
--- NOTE | 2018-02-19 18:43 | MR ---
EXAM DATE: 02/19/2018 6:01 PM EDT AGE/SEX: 82 years / Male INDICATIONS: CVA. Stenosis. CLINICAL DATA: This is the patient's subsequent encounter. Patient reports that signs and symptoms h ave been present for 2 days and indicates a pain score of 0/10. MEDICAL/SURGICAL HISTORY: None. Umbilical hernia repair. Eardrum repair. [place] [facility] [place]. . TECHNIQUE: 3D [id number] MRA was performed. Source images, multiplanar STS MIP, and 3D volum e MIP reconstructions were reviewed. FINDINGS: There is occlusion of the left internal carotid artery. The right internal carotid artery is patent. It is seen to normally bifurcate into the anterior and middle cerebral arteries. There appears to be at the anterior commuting artery supplying the left anterior cerebral artery and portions of the righ t middle cerebral artery. Flow is diminished in the proximal A1 segment of the left anterior cerebral artery and in the M1 segments of the left middle cerebral artery. Mild to moderate areas of stenosis in these regions needs to be suspected. There is asymmetric flow with diminished flow seen on the le ft distal middle cerebral artery territory compared to the right side. The basilar artery is mainly a continuation of the left vertebral artery. The right vertebral artery primarily ends at the posterior inferior cerebellar artery providing minimal contribution to the basi lar artery. The basilar artery is seen to bifurcate into the posterior cerebral arteries. There is a focal stenosis at the origin of the left posterior cerebral artery. Flow is diminished in the left po sterior cerebral artery compared to the right posterior cerebral artery. CONCLUSION: 1. Occlusion of the left internal carotid artery. 2. Areas of stenosis in the left A1 segment of the left anterior cerebral artery and the left M1 seg ment of the left middle cerebral artery. 3. Focal severe stenosis at the proximal left posterior cerebral artery. 4. There is an asymmetric and diminished flow in the left middle and posterior cerebral artery catie tories. Electronically signed by: Rickey Gao MD 02/19/2018 6:41 PM EDT
[2018-02-20] MEDS: Clindamycin 900 mg/NS Premix 900 MG/50 ML PIGGYBACK IV.SIG SCH ×3 (03:06→21:11)
--- NOTE | 2018-02-20 07:31 | P.PNNEU ---
Subjective Subjective Comments: 2 second pauses sr Active Medications: Active Medications Acetaminophen (Tylenol) 650 mg PO Q4H PRN PRN Reason: Temp > 100.4 Last Admin: 02/18/18 23:39 Dose: 650 mg Al Hydroxide/Mg Hydroxide (Milk Of Magnesia Liq) 30 ml PO Q12H PRN PRN Reason: Mild Constipation Aspirin (Aspirin) 325 mg PO DAILY [facility] Last Admin: 02/19/18 13:21 Dose: 325 mg Bisacodyl (Dulcolax Supp) 10 mg RECTAL DAILY PRN PRN Reason: SEVERE CONSITIPATION Dexamethasone Sodium Phosphate (Decadron Inj) 8 mg IV.PUSH Q8H [facility] Last Admin: 02/20/18 04:50 Dose: 8 mg Enalaprilat (Vasotec Inj) 1.25 mg IV.PUSH Q8H PRN PRN Reason: SBP > 180 or DBP> 100 Sodium Chloride (Ns Inj) 1,000 mls @ 80 mls/hr IV.CONT .[id number] [facility] Last Infusion: 02/20/18 01:05 Dose: Infused Clindamycin/Sodium Chloride (Cleocin 900 Mg/Ns Premix) 900 mg in 50 mls @ 100 mls/hr IV.SIG Q8H [facility] Last Infusion: 02/20/18 03:36 Dose: Infused Lactulose (Lactulose Liq) 30 ml PO DAILY PRN PRN Reason: SEVERE CONSITIPATION Morphine Sulfate (Morphine Inj) 2 mg IV.PUSH Q4H PRN PRN Reason: pain 6-10 Ondansetron HCl (Zofran Inj) 4 mg IV.PUSH Q6H PRN PRN Reason: NAUSEA OR VOMITING Senna/Docusate Sodium (Brianna-Colace) 1 tab PO BID [facility] Last Admin: 02/19/18 20:44 Dose: 1 tab Sennosides (Senokot) 17.2 mg PO Q12H PRN PRN Reason: Moderate Constipation Allergies/Adverse Reactions: Allergies Allergy/AdvReac Type Severity Reaction Status Date / Time No Known Allergies Allergy Verified 02/18/18 16:21 Physical Exam Vital signs: Vital Signs 02/19/18 07:59 02/19/18 11:48 02/19/18 15:39 Temperature 97.5 F L 97.3 F L 97.8 F Pulse Rate 57 L 57 L 55 L Respiratory Rate 16 21 16 Blood Pressure 165/73 H 198/79 H 153/70 H Pulse Oximetry 97 97 02/19/18 19:35 02/19/18 22:52 02/20/18 00:15 Temperature 98.0 F 98.4 F Pulse Rate 73 51 L 49 L Respiratory Rate 18 18 Blood Pressure 147/69 H 132/61 Pulse Oximetry 97 96 02/20/18 03:33 Temperature 97.8 F Pulse Rate 50 L Respiratory Rate 18 Blood Pressure 135/64 Pulse Oximetry 97 Intake & Output 02/19/18 02/20/18 02/20/18 18:59 06:59 18:59 Intake Total 350 / 350 1220 / 1220 Balance 350 / 350 1220 / 1220 Weight 79.832 kg Intake: IV 350 / 350 1100 / 1100 NS Inj 1,000 ML @ 80 mls/hr IV. 300 / 300 1000 / 1000 CONT .[id number] NANCIE Rx#:[id number] Cleocin 900 mg/NS Premix 900 mg 50 / 50 100 / 100 In 50 ml @ 100 mls/hr IV.SIG Q8H [facility] Rx#:[id number] Oral 120 / 120 Other: # Voids 3 Date of Last Bowel Movement 02/18/18 02/18/18 Narrative: slurred speech moves all well Objective Laboratory Results - last 24 hr 02/19/18 02/19/18 02/19/18 06:30 06:30 13:06 WBC 3.1 L D RBC 3.94 L Hgb 13.4 Hct 37.8 L MCV 96.1 MCH 33.9 MCHC 35.3 RDW 12.9 Plt Count 212 MPV 7.1 Neut % (Auto) 73.1 H Lymph % (Auto) 25.0 [place] % (Auto) 1.6 Eos % (Auto) 0.1 Baso % (Auto) 0.2 Neut # (Auto) 2.3 Lymph # (Auto) 0.8 L [place] # (Auto) 0.0 Eos # (Auto) 0.0 Baso # (Auto) 0.0 WBC Differential . Differential Comment Auto diff final Sodium 136 Potassium 4.4 Chloride 103 Carbon Dioxide 24.7 Anion Gap 8 BUN 15 Creatinine 1.06 Estimated GFR 67 L Random Glucose 179 H Calcium 9.9 Troponin I Less than 0.02 L Triglycerides 63 Cholesterol 143 LDL Cholesterol, Calc 87 HDL Cholesterol 43.8 Cholesterol/HDL Ratio 3.26 TSH 0.200 L Review/Management - Review/Management Plan: imp i put this together and dw son left carotid occlusion maybe a yr ago with stm problems and some r arm clumsiness and recent slurred speech from mass echo and eeg neg tenous but patent flow from acom r to left but fills left mca should keep bp up around 140-160 and we could nlt want low bp asa 81 mg ok and will have cards see for pauses on tele holter pend ldl ok check b12 for stm loss also on mri i cannot say for sure not small left occipital area cva acute vs shine through keep bp up and asa ow stable neuro
--- NOTE | 2018-02-20 08:33 | P.PNIM ---
Subjective Interval history: in no acute distress. looks comfortable. still has some sore throat but he says that it's a little better today. Physical Exam Vital signs: Vital Signs 02/19/18 11:48 02/19/18 15:39 02/19/18 19:35 Temperature 97.3 F L 97.8 F 98.0 F Pulse Rate 57 L 55 L 73 Respiratory Rate 21 16 18 Blood Pressure 198/79 H 153/70 H 147/69 H Pulse Oximetry 97 97 02/19/18 22:52 02/20/18 00:15 02/20/18 03:33 Temperature 98.4 F 97.8 F Pulse Rate 51 L 49 L 50 L Respiratory Rate 18 18 Blood Pressure 132/61 135/64 Pulse Oximetry 96 97 02/20/18 07:52 Temperature 98.5 F Pulse Rate 56 L Respiratory Rate 16 Blood Pressure 165/88 H Pulse Oximetry 96 Intake & Output 02/19/18 02/20/18 02/20/18 18:59 06:59 18:59 Intake Total 350 / 350 1220 / 1220 Balance 350 / 350 1220 / 1220 Weight 79.832 kg Intake: IV 350 / 350 1100 / 1100 NS Inj 1,000 ML @ 80 mls/hr IV. 300 / 300 1000 / 1000 CONT .[id number] [facility]ANCI[facility] Rx#:[id number] Cleocin 900 mg/NS Premix 900 mg 50 / 50 100 / 100 In 50 ml @ 100 mls/hr IV.SIG Q8H [facility] Rx#:[id number] Oral 120 / 120 Other: # Voids 3 Date of Last Bowel Movement 02/18/18 02/18/18 - Constitutional no acute distress - Routine Respiratory Exam Present: CTA bilaterally - Routine Cardiovascular Exam Present: RRR - Routine Abdominal Exam Present: soft - Routine Extremities Exam Comments: no pedal edema. - Routine Neurological Exam Present: alert, oriented X3 Results - Labs CBC & Chem 7: 02/19/18 06:30 02/19/18 06:30 Laboratory Results - last 24 hr 02/19/18 13:06 Troponin I Less than 0.02 L Triglycerides 63 Cholesterol 143 LDL Cholesterol, Calc 87 HDL Cholesterol 43.8 Cholesterol/HDL Ratio 3.26 TSH 0.200 L - Imaging Impressions Head CTA 02/19/18 00:00 CONCLUSION: 1. Occlusion of the left internal carotid artery with reconstitution of the left anterior circulation via a patent anterior indicating artery. There is however apparent focal concentric mild to moderate stenosis of the left proximal A1 segment. 2. 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 Head MRA 02/19/18 00:00 CONCLUSION: 1. Occlusion of the left internal carotid artery. 2. Areas of stenosis in the left A1 segment of the left anterior cerebral artery and the left M1 segment of the left middle cerebral artery. 3. Focal severe stenosis at the proximal left posterior cerebral artery. 4. There is an asymmetric and diminished flow in the left middle and posterior cerebral artery territories. Neck CTA 02/19/18 00:00 CONCLUSION: 1. Complete occlusion left internal carotid artery. 2. Mild narrowing of the right internal carotid artery suggesting 40-50 % stenosis. Assessment and Plan - Plan 1. Tonsillar mass CT of the neck showed a soft tissue density at the lingual tonsil level related either to enlarged tonsils or potentially an underlying mass/neoplasm ENT consulted, appreciate assistance IR consulted for biopsy CT of the chest/ abdomen pending. Decadron and clindamycin per ENT recommendations 2. Prior CVA Brain MRI significant for suspected small area of prior infarction and encephalization involving the left occipital lobe with suspected occlusion of the left internal carotid artery with occlusion of the left ICA EEG; overall normal Neurology consult appreciated Holter and cardiology evaluation pending. 3. CHRISSIE- improved. Cr 1.31, baseline unknown IVF hydration Monitor renal function 4. Hypothyroidism No currently taking home medications FEN NPO for biopsy Electrolytes: Monitor and replete. NS at 80 cc/hour Holding pharmacologic anticoagulation -pending the biopsy. Discharge Planning: w/u in progress. not ready for discharge today.
--- NOTE | 2018-02-20 08:44 | P.CONCA ---
History of Present Illness Primary Care Provider: UNKNOWN History of Present Illness: 82-year-old male who presented to the hospital for throat pain and has been undergoing workup for tonsillar mass. The patient was seen by neurology for hoarse speech. Neurology had noted episodes of sinus pauses and is requested cardiology consultation. Patient denies any prior heart problems. Patient denies any lightheadedness, dizziness, or passing out. Telemetry monitoring shows episodes of sinus pauses, longest lasting about 2 seconds, that occur mostly between the sleeping hours of 12 AM and 6 AM. Otherwise, telemetry shows NSR with occasional PVCs. Echocardiogram was done and was essentially unremarkable. Holter monitor has been ordered. TSH noted to be low at 0.2. Review of Systems All other systems reviewed negative except as stated [facility] - History History Provided By: Patient, Medical Record - Medical History Medical History: Medical History (Last Reviewed 02/18/18 @ 20:57 by Mari Mcrae MD) Thyroid activity decreased - Surgical History Surgical History: Surgical History (Last Updated 02/18/18 @ 20:58 by Mari Mcrae MD) History of repair of hiatal hernia - Family History Family History: Family History (Last Updated 02/18/18 @ 20:58 by Mari Mcrae MD) Other Coronary artery disease Diabetes mellitus - Tobacco History Second Hand Smoke Exposure: No Tobacco Use In Past 30 Days: No Smoking Status: Never smoker - Alcohol History How Often Do You Have a Drink Containing Alcohol: Monthly or less - Substance Use History Substance History: No History of Abuse - Travel History Recent Travel in the [place] Within the Last 8 Weeks: No Recent Travel Out of the Country Within the Last 8 Weeks: No - Immunization History Tetanus Immunization: >5 Years Medications and Allergies Allergies Allergy/AdvReac Type Severity Reaction Status Date / Time No Known Allergies Allergy Verified 02/18/18 16:21 Home Medications Medication Instructions Recorded Confirmed Type tyrosine 500 mg PO DAILY 02/18/18 02/18/18 History Active Medications: Active Medications Acetaminophen (Tylenol) 650 mg PO Q4H PRN PRN Reason: Temp > 100.4 Last Admin: 02/18/18 23:39 Dose: 650 mg Al Hydroxide/Mg Hydroxide (Milk Of Magnraisa Liq) 30 ml PO Q12H PRN PRN Reason: Mild Constipation Aspirin (Aspirin) 325 mg PO DAILY NANCIE Last Admin: 02/19/18 13:21 Dose: 325 mg Bisacodyl (Dulcolax Supp) 10 mg RECTAL DAILY PRN PRN Reason: SEVERE CONSITIPATION Dexamethasone Sodium Phosphate (Decadron Inj) 8 mg IV.PUSH Q8H [facility] Last Admin: 02/20/18 04:50 Dose: 8 mg Enalaprilat (Vasotec Inj) 1.25 mg IV.PUSH Q8H PRN PRN Reason: SBP > 180 or DBP> 100 Sodium Chloride (Ns Inj) 1,000 mls @ 80 mls/hr IV.CONT .[id number] [facility] Last Infusion: 02/20/18 01:05 Dose: Infused Clindamycin/Sodium Chloride (Cleocin 900 Mg/Ns Premix) 900 mg in 50 mls @ 100 mls/hr IV.SIG Q8H [facility] Last Infusion: 02/20/18 03:36 Dose: Infused Lactulose (Lactulose Liq) 30 ml PO DAILY PRN PRN Reason: SEVERE CONSITIPATION Morphine Sulfate (Morphine Inj) 2 mg IV.PUSH Q4H PRN PRN Reason: pain 6-10 Ondansetron HCl (Zofran Inj) 4 mg IV.PUSH Q6H PRN PRN Reason: NAUSEA OR VOMITING Senna/Docusate Sodium (Brianna-Colace) 1 tab PO BID [facility] Last Admin: 02/19/18 20:44 Dose: 1 tab Sennosides (Senokot) 17.2 mg PO Q12H PRN PRN Reason: Moderate Constipation Exam Vital signs: Vital Signs 02/19/18 11:48 02/19/18 15:39 02/19/18 19:35 Temperature 97.3 F L 97.8 F 98.0 F Pulse Rate 57 L 55 L 73 Respiratory Rate 21 16 18 Blood Pressure 198/79 H 153/70 H 147/69 H Pulse Oximetry 97 97 02/19/18 22:52 02/20/18 00:15 02/20/18 03:33 Temperature 98.4 F 97.8 F Pulse Rate 51 L 49 L 50 L Respiratory Rate 18 18 Blood Pressure 132/61 135/64 Pulse Oximetry 96 97 02/20/18 07:52 Temperature 98.5 F Pulse Rate 56 L Respiratory Rate 16 Blood Pressure 165/88 H Pulse Oximetry 96 Intake & Output 10/03/2902/20/18 02/20/18 18:59 06:59 18:59 Intake Total 350 / 350 1220 / 1220 Balance 350 / 350 1220 / 1220 Weight 176 lb Intake: IV 350 / 350 1100 / 1100 NS Inj 1,000 ML @ 80 mls/hr IV. 300 / 300 1000 / 1000 CONT .[id number] NANCIE Rx#:[id number] Cleocin 900 mg/NS Premix 900 mg 50 / 50 100 / 100 In 50 ml @ 100 mls/hr IV.SIG Q8H NANCIE Rx#:[id number] Oral 120 / 120 Other: # Voids 3 Date of Last Bowel Movement 02/18/18 02/18/18 Narrative: GENERAL: Well-developed well-nourished. In no acute distress. NECK: No carotid bruits. No JVD. CARDIOVASCULAR: Regular rate and rhythm. No murmur appreciated. RESPIRATORY: No accessory muscle use. Clear to auscultation. Breath sounds equal bilaterally. MUSCULOSKELETAL: No clubbing or cyanosis. No edema. NEUROLOGICAL: Awake and alert. Normal speech. Results 02/19/18 06:30 02/19/18 06:30 Cardiac Enzymes 02/18/18 02/18/18 02/19/18 Range/Units 17:15 17:15 13:06 AST 20 (15-37) U/L Troponin I Less than 0.02 L Less than 0.02 L (0.02-0.05) ng/mL B-Natriuretic Peptide 65 (0-100) pg/mL Coagulation 02/18/18 02/18/18 Range/Units 17:15 17:15 PT 10.5 (9.8-11.6) sec B-Natriuretic Peptide 65 (0-100) pg/mL Lipids 02/19/18 Range/Units 13:06 Triglycerides 63 (42-150) mg/dL Cholesterol 143 (120-200) mg/dL HDL Cholesterol 43.8 (40.0-60.0) mg/dL Cholesterol/HDL Ratio 3.26 Ratio CBC 02/18/18 02/19/18 Range/Units 17:15 06:30 WBC 8.4 3.1 L D (4.0-11.0) th/mm3 RBC 3.86 L 3.94 L (4.50-5.90) mil/mm3 Hgb 13.3 13.4 (13.0-17.0) gm/dL Hct 37.8 L 37.8 L (39.0-51.0) % Plt Count 197 212 (150-450) th/mm3 Neut # (Auto) 5.2 2.3 (1.8-7.7) th/mm3 Lymph # (Auto) 1.9 0.8 L (1.0-4.8) th/mm3 [place] # (Auto) 0.8 0.0 (0.0-0.9) th/mm3 Eos # (Auto) 0.4 0.0 (0.0-0.4) th/mm3 Baso # (Auto) 0.1 0.0 (0.0-0.2) th/mm3 Comprehensive Metabolic Panel 02/18/18 02/19/18 Range/Units 17:15 06:30 Sodium 139 136 (136-145) meq/L Potassium 4.2 4.4 (3.5-5.1) meq/L Chloride 103 103 (98-107) meq/L Carbon Dioxide 26.7 24.7 (21.0-32.0) meq/L BUN 18 15 (7-18) mg/dL Creatinine 1.31 H 1.06 (0.60-1.30) mg/dL Calcium 9.7 9.9 (8.5-10.1) mg/dL AST 20 (15-37) U/L ALT 19 (12-78) U/L Alkaline Phosphatase 84 (45-117) U/L Total Protein 7.0 (6.4-8.2) g/dL Albumin 3.6 (3.4-5.0) g/dL Intake and Output 02/19/18 02/20/18 02/20/18 22:59 06:59 14:59 Intake Total 50 / 50 1170 / 1170 Balance 50 / 50 1170 / 1170 Intake: IV 50 / 50 1050 / 1050 NS Inj 1,000 ML @ 80 mls/hr IV. 1000 / 1000 CONT .[id number] NANCIE Rx#:[id number] Cleocin 900 mg/NS Premix 900 mg 50 / 50 50 / 50 In 50 ml @ 100 mls/hr IV.SIG Q8H NANCIE Rx#:[id number] Oral 120 / 120 Other: # Voids 3 Date of Last Bowel Movement 02/18/18 Weight 176 lb - Imaging and Cardiology Imaging: Impressions Carotid Doppler Study 02/18/18 00:00 CONCLUSION: 1. Occlusion of the left internal carotid artery. 2. Mild plaque at the right carotid bulb region. 3. Soft tissue mass in the left submandibular region and bilateral adenopathy. This is more fully described in the CT of the soft tissue neck. Chest X-Ray 02/18/18 16:35 CONCLUSION: Hiatal hernia. Clear lungs. Head MRI 02/18/18 16:35 CONCLUSION: 1. 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 2. 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 3. Acute abnormality is not clearly seen. 4. Scattered areas of increased signal within the cerebral white matter likely related to small vessel ischemic change. Soft Tissue Neck CT 02/18/18 16:35 CONCLUSION: Soft tissue density at the lingual tonsil level related to either enlarged tonsils or potentially a underlying mass/neoplasm. This appears to be directly inspected. There is bilateral adenopathy being worse on the left. Head CTA 02/19/18 00:00 CONCLUSION: 1. Occlusion of the left internal carotid artery with reconstitution of the left anterior circulation via a patent anterior indicating artery. There is however apparent focal concentric mild to moderate stenosis of the left proximal A1 segment. 2. 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 Head MRA 02/19/18 00:00 CONCLUSION: 1. Occlusion of the left internal carotid artery. 2. Areas of stenosis in the left A1 segment of the left anterior cerebral artery and the left M1 segment of the left middle cerebral artery. 3. Focal severe stenosis at the proximal left posterior cerebral artery. 4. There is an asymmetric and diminished flow in the left middle and posterior cerebral artery territories. Neck CTA 02/19/18 00:00 CONCLUSION: 1. Complete occlusion left internal carotid artery. 2. Mild narrowing of the right internal carotid artery suggesting 40-50 % stenosis. Assessment and Plan - Plan 82-year-old male admitted for tonsillar mass, consulted for sinus pauses. Sinus pauses: Less than 3 seconds. Asymptomatic. These seem to occur when sleeping, likely benign. Holter has been ordered. Avoid AV shea blocking agents. Treatment of possible thyroid dysfunction per primary team. No further workup indicated at this time. Discussed Condition With: Patient, hospitalist, Dr. Minor - Attending Attestation agree with above brief sinus pauses associated with increased vagal tone, benign outpatient holter FU PCP DC planning will sign off call with further questions
[2018-02-20] MEDS: Aspirin 325 MG Tablet PO SCH (11:56)
[2018-02-20] MEDS: Senna/Docusate Sodium 8.6/50 MG Tablet PO SCH ×2 (11:58→21:15)
[2018-02-20] MEDS: Sod Chloride 0.9% Inj 1,000 ML IV.CONT SCH ×2 (12:02→19:32)
[2018-02-20] MEDS ORDERED: Diatrizoate Meglum/Diatrizoate Sod Liq 9 ML UDC PO ONE (15:30)
[2018-02-20] MEDS ORDERED: Lidocaine PF 1% Inj 5 ML Vial ONE (15:57)
--- NOTE | 2018-02-20 16:26 | US ---
EXAM DATE: 02/20/2018 12:00 AM EDT AGE/SEX: 82 years / Male INDICATIONS: Enlarged lymph node. CLINICAL DATA: This is the patient's initial encounter. Patient reports that signs and symptoms have been present for 2 days and indicates a pain score of 3/10. MEDICAL/SURGICAL HISTORY: Hypothyroidism. . Hiatal hernia repair. COMPARISON: No prior exams available for comparison. ORGAN: Left Neck. SPECIMEN(S): Three DEVICE(S): 18 gauge Temno needle Post procedure scanning reveals no hematoma or other complication. The possibility does exist that the tissue obtained will be non-diagnostic. If the sample is non-diag nostic, a repeat biopsy or surgical biopsy may need to be performed. TECHNIQUE: 1. Ultrasound guidance for needle biopsy. 2. Needle biopsy. 3. 4. . . The risks, benefits and alternatives to the procedure were explained and verbal and written consent w as obtained. The site was prepped in sterile fashion. Full sterile technique was used, including ca p, mask, sterile gloves and gown and a large sterile sheet. Hand hygiene and 2% chlorhexidine and/or betadine/alcohol prep was utilized per protocol for cutaneous antisepsis. The skin and subcutaneous tissues were infiltrated with local anesthetic solution. Sterile gel and sterile probe cover were u tilized for ultrasound guidance. With the patient on the ultrasound table, images were obtained. A needle was advanced into the identified target and the number of specimens as above obtained and davis bmitted for pathologic evaluation. The patient tolerated the procedure well and left the ultrasound suite in stable condition. FINDINGS: The group 2 lymph node in the left neck was localized and multiple passes were made CONCLUSION: 1. Uncomplicated biopsy of left neck node Electronically signed by: James Kapadia MD 02/20/2018 4:24 PM EDT
--- NOTE | 2018-02-20 19:28 | CT ---
EXAM DATE: 02/20/2018 6:53 PM EDT AGE/SEX: 82 years / Male INDICATIONS: Short of breath. CLINICAL DATA: This is the patient's initial encounter. Patient reports that signs and symptoms have been present for 1 day and indicates a pain score of 0/10. MEDICAL/SURGICAL HISTORY: None. . Hiatal hernia repair. RADIATION DOSE: 11.19 CTDI (mGy) ; Combined studies COMPARISON: No prior exams available for comparison. TECHNIQUE: Multiple contiguous axial images were obtained through the chest without contrast. Image s were obtained in suspended respiration using multiple row detector helical technique. Using automa reji exposure control and adjustment of the mA and/or kV according to patient size, radiation dose was kept as low as reasonably achievable to obtain optimal diagnostic quality images. DICOM format imag e data is available electronically for review and comparison. FINDINGS: Lungs: There is linear density at the posterior and lateral lower right lung likely related to scarr ing or atelectasis. There some minimal linear density at the posterior medial left lower lobe. Mediastinum: There is good visualization of the great vessels of the middle mediastinum. No evidenc e of mediastinal or hilar adenopathy/mass. Coronary artery calcifications are present. Pleurae: No evidence of focal thickening or pleural effusion. Axillae: Unremarkable. Bony Structures: Unremarkable. Miscellaneous: There is a moderate to large paraesophageal hiatal hernia. The patient is to have a C T of the abdomen and pelvis to follow. CONCLUSION: 1. Linear density at the lower lungs being more prominent on the right likely related to scarring or atelectasis. 2. Coronary artery calcifications. 3. Moderate to large paraesophageal hiatal hernia. Electronically signed by: Rickey Gao MD 02/20/2018 7:27 PM EDT
--- NOTE | 2018-02-20 19:32 | CT ---
EXAM DATE: 02/20/2018 6:53 PM EDT AGE/SEX: 82 years / Male INDICATIONS: Lymphoma. CLINICAL DATA: This is the patient's initial encounter. Patient reports that signs and symptoms have been present for 1 day and indicates a pain score of 0/10. MEDICAL/SURGICAL HISTORY: None. . Hernia repair. RADIATION DOSE: 11.19 CTDI (mGy) COMPARISON: No prior exams available for comparison. TECHNIQUE: Multiple contiguous axial images were obtained through the abdomen. Images were obtained using multiple row detector helical technique. Using automated exposure control and adjustment of the mA and/or kV according to patient size, radiation dose was kept as low as reasonably achievable to o btain optimal diagnostic quality images. DICOM format image data is available electronically for rev iew and comparison. FINDINGS: Lower Lungs: There is linear density at the lung bases likely related to scarring or atelectasis. Liver: The liver has a homogeneous density without space-occupying lesion. There is no dilation of th e biliary tree. There is high-density material seen layering within the gallbladder which may represe nt gallstones, dense sludge or milk of calcium. Spleen: Homogeneous density without enlargement. Pancreas: Unremarkable without mass or calcification. Kidneys: Normal in size and shape. No evidence of mass or hydronephrosis. Adrenal Glands: Unremarkable. Aorta: Atherosclerotic calcification is seen throughout the arterial system. Bowel/Mesentery: There is a moderate to large paraesophageal hiatal hernia. The stomach is above the diaphragmatic hiatus. There is a hernia in the midline containing segments of bowel. Significant bow el dilatation or thickening is not seen. Abdominal Wall: The patient has a hernia in the anterior midline the abdomen. There is hernia mesh s een. Hernia mesh is seen on both sides of the hernia anteriorly and posteriorly. The defect in the an terior abdominal wall measures at least 5.6 cm in transverse dimension. There is a 4.6 cm cystic area seen at the anterior right lateral abdominal wall with septations fat likely related to a hematoma o r seroma in this region. Retroperitoneum: No evidence of adenopathy in the retrocrural, para-aortic, or deep pelvic regions. Bladder: Contours are smooth. Reproductive Organs: The prostate is enlarged. Inguinal: The inguinal region is unremarkable without evidence of adenopathy. Bony Structures: There is degenerative change in the thoracic and lumbar spine. CONCLUSION: 1. Moderate to large paraesophageal hiatal hernia. 2. Midline abdominal hernia. Hernia mesh is seen. The hernia appears to extend through the hernia me sh. The hernia contains bowel without signs of dilatation or thickening. 3. 4.6 cm cystic area seen at the right lateral margin of the hernia likely related to a hematoma or seroma. An abscess cannot be excluded but the rim does not appear thickened. 4. Prostatic enlargement. 5. Degenerative change. Electronically signed by: Rickey Gao MD 02/20/2018 7:31 PM EDT
[2018-02-21] MEDS: Clindamycin 900 mg/NS Premix 900 MG/50 ML PIGGYBACK IV.SIG SCH ×3 (04:33→21:33)
--- NOTE | 2018-02-21 08:44 | P.PNIM ---
Subjective Interval history: in no acute distress. looks comfortable. still has some sore throat but he says that 'it's not as bad'. noted a few pauses on telemetry. no other complaints. Physical Exam Vital signs: Vital Signs 02/20/18 09:00 02/20/18 12:00 02/20/18 15:14 Temperature 98.2 F 98.4 F Pulse Rate 56 L 52 L 88 Respiratory Rate 16 18 Blood Pressure 153/70 H 148/68 H Pulse Oximetry 96 96 02/20/18 16:00 02/20/18 20:45 02/20/18 21:25 Temperature 98.2 F 98.0 F Pulse Rate 66 55 L 55 L Respiratory Rate 18 18 Blood Pressure 170/70 H 152/67 H Pulse Oximetry 95 94 L 02/20/18 23:32 02/20/18 23:40 02/21/18 03:35 Temperature 98.0 F 98.4 F Pulse Rate 54 L 54 L Respiratory Rate 18 18 17 Blood Pressure 147/68 H 139/63 Pulse Oximetry 96 95 02/21/18 08:00 Temperature 98.1 F Pulse Rate 54 L Respiratory Rate 16 Blood Pressure 152/71 H Pulse Oximetry 97 Intake & Output 02/20/18 02/21/18 02/21/18 18:59 06:59 18:59 Intake Total 50 / 50 1100 / 1100 Balance 50 / 50 1100 / 1100 Intake: IV 50 / 50 1100 / 1100 NS Inj 1,000 ML @ 80 mls/hr IV. 1000 / 1000 CONT .[id number] NANCIE Rx#:[id number] Cleocin 900 mg/NS Premix 900 mg 50 / 50 100 / 100 In 50 ml @ 100 mls/hr IV.SIG Q8H NANCIE Rx#:[id number] Other: # Voids 3 Date of Last Bowel Movement 02/18/18 02/18/18 - Constitutional no acute distress - Routine Respiratory Exam Present: CTA bilaterally - Routine Cardiovascular Exam Present: RRR - Routine Abdominal Exam Present: soft - Routine Extremities Exam Comments: no pedal edema. - Routine Neurological Exam Present: alert, oriented X3 Results - Labs CBC & Chem 7: 02/19/18 06:30 02/19/18 06:30 Laboratory Results - last 24 hr 02/20/18 09:10 Vitamin B12 1610 H - Imaging Impressions Lymph Node Biopsy Ultrasound 02/20/18 00:00 CONCLUSION: 1. Uncomplicated biopsy of left neck node Abdomen/Pelvis CT 02/20/18 13:10 CONCLUSION: 1. Moderate to large paraesophageal hiatal hernia. 2. Midline abdominal hernia. Hernia mesh is seen. The hernia appears to extend through the hernia mesh. The hernia contains bowel without signs of dilatation or thickening. 3. 4.6 cm cystic area seen at the right lateral margin of the hernia likely related to a hematoma or seroma. An abscess cannot be excluded but the rim does not appear thickened. 4. Prostatic enlargement. 5. Degenerative change. Chest CT 02/20/18 13:10 CONCLUSION: 1. Linear density at the lower lungs being more prominent on the right likely related to scarring or atelectasis. 2. Coronary artery calcifications. 3. Moderate to large paraesophageal hiatal hernia. - Procedures neck lymph node biopsy. Assessment and Plan - Plan 1. Tonsillar mass CT of the neck showed a soft tissue density at the lingual tonsil level related either to enlarged tonsils or potentially an underlying mass/neoplasm ENT consulted, appreciate assistance s/p biopsy of the neck lymph node- CT of the chest/ abdomen as noted above. Decadron and clindamycin per ENT recommendations 2. Prior CVA Brain MRI significant for suspected small area of prior infarction and encephalization involving the left occipital lobe with suspected occlusion of the left internal carotid artery with occlusion of the left ICA EEG; overall normal echo with EF 55% and garde I diastolic dysfunction Neurology consult appreciated sinus pauses noted on telemetry which was evaluated by cardiology; recommended outpatient f/u with Holter. 3. CHRISSIE- improved. Cr 1.31, baseline unknown IVF hydration Monitor renal function 4. Hypothyroidism No currently taking home medications 5. 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 consult PT. Discharge Planning: dc home - likely tomorrow if stable. f/u; pcp,cardiology, neurology and ENT and general surgery as outpatient. case was previously d/w who recommended discharge after biopsy with steroid and antibiotic as outpatient till seen in the office.
[2018-02-21] MEDS: Sod Chloride 0.9% Inj 1,000 ML IV.CONT SCH ×2 (09:06→21:32)
[2018-02-21] MEDS: Aspirin 325 MG Tablet PO SCH (09:06)
[2018-02-21] MEDS: Senna/Docusate Sodium 8.6/50 MG Tablet PO SCH ×2 (09:06→20:30)
[2018-02-22] MEDS: Clindamycin 900 mg/NS Premix 900 MG/50 ML PIGGYBACK IV.SIG SCH (03:21)
[2018-02-22 07:28] VITALS: BP 173/74; PULSE 54; RESP 20; TEMP 98.1; O2SAT 96
--- NOTE | 2018-02-22 08:22 | P.PN ---
Subjective Interval history: Patient seen lying quietly in bed. He denies any new concerns or complaints. Does continue to have a little bit of a sore throat but nothing new or worse. No chest pain or shortness of breath. He has not noticed any changes in his heart rhythm, dizziness or syncope. No nausea vomiting or diarrhea. Physical Exam Vital signs: Vital Signs 02/21/18 09:00 02/21/18 11:27 02/21/18 15:14 Temperature 97.4 F L 97.5 F L Pulse Rate 49 L 53 L 54 L Respiratory Rate 16 16 Blood Pressure 145/65 H 181/76 H Pulse Oximetry 95 97 02/21/18 19:24 02/21/18 20:00 02/21/18 23:55 Temperature 98.4 F 97.9 F Pulse Rate 81 95 H 52 L Respiratory Rate 18 18 Blood Pressure 200/91 H 146/63 H Pulse Oximetry 98 94 L 02/22/18 03:29 02/22/18 04:15 02/22/18 07:22 Temperature 97.9 F 98.1 F Pulse Rate 49 L 47 L 54 L Respiratory Rate 18 20 Blood Pressure 155/70 H 173/74 H Pulse Oximetry 94 L 96 Intake & Output 02/21/18 02/22/18 02/22/18 18:59 06:59 18:59 Intake Total 300 / 300 1340 / 1340 Balance 300 / 300 1340 / 1340 Weight 79.832 kg Intake: IV 50 / 50 1100 / 1100 NS Inj 1,000 ML @ 80 mls/hr IV. 1000 / 1000 CONT .[id number] NANCIE Rx#:[id number] Cleocin 900 mg/NS Premix 900 mg 50 / 50 100 / 100 In 50 ml @ 100 mls/hr IV.SIG Q8H NANCIE Rx#:[id number] Oral 250 / 250 240 / 240 Other: # Voids 3 Date of Last Bowel Movement 02/21/18 Narrative: GENERAL: Well-developed well-nourished. In no acute distress. NECK: No carotid bruits. No JVD. Supple, trachea midline. CARDIOVASCULAR: Regular rate and rhythm. No murmur appreciated. RESPIRATORY: No accessory muscle use. Clear to auscultation. Breath sounds equal bilaterally. MUSCULOSKELETAL: No clubbing or cyanosis. No edema. NEUROLOGICAL: Awake and alert. Normal speech. Results - Labs CBC & Chem 7: 02/19/18 06:30 02/19/18 06:30 Laboratory Results - last 24 hr 02/20/18 02/21/18 15:50 12:17 [facility] - Procedures neck lymph node biopsy. Assessment and Plan - Plan 1. Tonsillar mass CT of the neck showed a soft tissue density at the lingual tonsil level related either to enlarged tonsils or potentially an underlying mass/neoplasm ENT consulted, appreciate assistance s/p biopsy of the neck lymph node- CT of the chest/ abdomen as noted above. Decadron and clindamycin per ENT recommendations 2. Prior CVA Brain MRI significant for suspected small area of prior infarction and encephalization involving the left occipital lobe with suspected occlusion of the left internal carotid artery with occlusion of the left ICA EEG; overall normal echo with EF 55% and garde I diastolic dysfunction Neurology consult appreciated - neuro recs systolic BP 140-160 and ASA 81 sinus pauses noted on telemetry which was evaluated by cardiology; holter - longest pause 2.2 sec. 3. CHRISSIE- improved. Cr 1.31, baseline unknown IVF hydration Monitor renal function 4. Hypothyroidism No currently taking home medications; f/u with primary 5. 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 consult PT. Discharge Planning: dc home - likely tomorrow if stable. f/u; pcp,cardiology, neurology and ENT and general surgery as outpatient. case was previously d/w who recommended discharge after biopsy with steroid and antibiotic as outpatient till seen in the office.
--- NOTE | 2018-02-22 08:32 | P.DS ---
Date of admission: 02/18/18 20:55 Primary care physician: UNKNOWN Attending physician on discharge: [place] Anticipated date of discharge: 02/22/18 Brief History from admission: 82-year-old male with a past medical history significant for hypothyroidism presents to the emergency department for the evaluation of a sore throat with neck swelling that has been going on for approximately 8 weeks. He also reports a 20 pound weight loss with associated anorexia since that time. He reports that he is able to swallow without difficulty. He denies any difficulty breathing or shortness of breath. No chest pain. No abdominal pain. No nausea/vomiting/diarrhea. No fever/chills. No lateralizing signs/ symptoms. DS: Diagnosis - Discharge Diagnosis (1) Tonsillar mass Status: Chronic (2) Bradycardia Status: Chronic (3) CHRISSIE (acute kidney injury) Status: Resolved (4) Sinus pause Status: Chronic DS: Medications - Discharge Medications Prescriptions: aspirin 162 mg PO DAILY 30 Days #60 tab clindamycin HCl 300 mg PO QID 7 Days #112 cap methylprednisolone [Medrol (Sunil)] 4 mg PO PER PKG DIR #1 ea DS: Summary Hospital Course: Patient is an 82-year-old male with a past medical history of hypothyroidism who presented to the emergency room for evaluation of sore throat and neck swelling. CT showed soft tissue density at the lingual tonsil questionable for either enlarged tonsil or possible underlying mass/neoplasm. Adjacent lymph node was biopsied. ENT was consulted; recommends discharge on Decadron and clindamycin with outpatient follow-up. Pathology pending. Neurology was also consulted for suspicion of new CVA -MRI showed prior infarct but no acute changes. Patient also noted to be bradycardic with pauses. Cardiology evaluated Via Holter and recommends outpatient follow-up only. Patient was also admitted with acute kidney injury likely due to dehydration from difficulty swallowing. Improved with IVF hydration. - Time Spent with Patient Total time spent providing and/or coordinating discharge services: Less than 30 minutes - Quality: VTE Deep Vein Thrombosis/Pulmonary Embolism Present on Admission: No Exam Vital signs: Vital Signs 02/21/18 09:00 02/21/18 11:27 02/21/18 15:14 Temperature 97.4 F L 97.5 F L Pulse Rate 49 L 53 L 54 L Respiratory Rate 16 16 Blood Pressure 145/65 H 181/76 H Pulse Oximetry 95 97 02/21/18 19:24 02/21/18 20:00 02/21/18 23:55 Temperature 98.4 F 97.9 F Pulse Rate 81 95 H 52 L Respiratory Rate 18 18 Blood Pressure 200/91 H 146/63 H Pulse Oximetry 98 94 L 02/22/18 03:29 02/22/18 04:15 02/22/18 07:22 Temperature 97.9 F 98.1 F Pulse Rate 49 L 47 L 54 L Respiratory Rate 18 20 Blood Pressure 155/70 H 173/74 H Pulse Oximetry 94 L 96 Intake & Output 02/21/18 02/22/18 02/22/18 18:59 06:59 18:59 Intake Total 300 / 300 1340 / 1340 Balance 300 / 300 1340 / 1340 Weight 79.832 kg Intake: IV 50 / 50 1100 / 1100 NS Inj 1,000 ML @ 80 mls/hr IV. 1000 / 1000 CONT .[id number] NANCIE Rx#:[id number] Cleocin 900 mg/NS Premix 900 mg 50 / 50 100 / 100 In 50 ml @ 100 mls/hr IV.SIG Q8H NANCIE Rx#:[id number] Oral 250 / 250 240 / 240 Other: # Voids 3 Date of Last Bowel Movement 02/21/18 Narrative: GENERAL: Well-developed well-nourished. In no acute distress. NECK: No carotid bruits. No JVD. Supple, trachea midline. CARDIOVASCULAR: Regular rate and rhythm. No murmur appreciated. RESPIRATORY: No accessory muscle use. Clear to auscultation. Breath sounds equal bilaterally. MUSCULOSKELETAL: No clubbing or cyanosis. No edema. NEUROLOGICAL: Awake and alert. Normal speech. Results Procedures completed during hospitalization: neck lymph node biopsy. Labs on day of discharge: Labs from last 24 hours 02/21/18 02/20/18 12:17 15:50 Free T4 1.05 Misc Test Result - Impressions ITS Impressions Carotid Doppler Study 02/18/18 00:00 CONCLUSION: 1. Occlusion of the left internal carotid artery. 2. Mild plaque at the right carotid bulb region. 3. Soft tissue mass in the left submandibular region and bilateral adenopathy. This is more fully described in the CT of the soft tissue neck. Chest X-Ray 02/18/18 16:35 CONCLUSION: Hiatal hernia. Clear lungs. Head MRI 02/18/18 16:35 CONCLUSION: 1. 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 2. 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 3. Acute abnormality is not clearly seen. 4. Scattered areas of increased signal within the cerebral white matter likely related to small vessel ischemic change. Soft Tissue Neck CT 02/18/18 16:35 CONCLUSION: Soft tissue density at the lingual tonsil level related to either enlarged tonsils or potentially a underlying mass/neoplasm. This appears to be directly inspected. There is bilateral adenopathy being worse on the left. Head CTA 02/19/18 00:00 CONCLUSION: 1. Occlusion of the left internal carotid artery with reconstitution of the left anterior circulation via a patent anterior indicating artery. There is however apparent focal concentric mild to moderate stenosis of the left proximal A1 segment. 2. 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 Head MRA 02/19/18 00:00 CONCLUSION: 1. Occlusion of the left internal carotid artery. 2. Areas of stenosis in the left A1 segment of the left anterior cerebral artery and the left M1 segment of the left middle cerebral artery. 3. Focal severe stenosis at the proximal left posterior cerebral artery. 4. There is an asymmetric and diminished flow in the left middle and posterior cerebral artery territories. Neck CTA 02/19/18 00:00 CONCLUSION: 1. Complete occlusion left internal carotid artery. 2. Mild narrowing of the right internal carotid artery suggesting 40-50 % stenosis. Lymph Node Biopsy Ultrasound 02/20/18 00:00 CONCLUSION: 1. Uncomplicated biopsy of left neck node Abdomen/Pelvis CT 02/20/18 13:10 CONCLUSION: 1. Moderate to large paraesophageal hiatal hernia. 2. Midline abdominal hernia. Hernia mesh is seen. The hernia appears to extend through the hernia mesh. The hernia contains bowel without signs of dilatation or thickening. 3. 4.6 cm cystic area seen at the right lateral margin of the hernia likely related to a hematoma or seroma. An abscess cannot be excluded but the rim does not appear thickened. 4. Prostatic enlargement. 5. Degenerative change. Chest CT 02/20/18 13:10 CONCLUSION: 1. Linear density at the lower lungs being more prominent on the right likely related to scarring or atelectasis. 2. Coronary artery calcifications. 3. Moderate to large paraesophageal hiatal hernia. Discharge Plan - Discharge Disposition Patient Disposition: 01 Discharge Home - Discharge Condition Condition: Fair - Discharge Order Discharge Orders: Discharge Order (Routine); Ordered 02/22/18 Ordered By: Zoe Richardson - Physicians Team Primary Care Provider: UNKNOWN, Attending Provider: [place] Other Providers: Jus Hudson MD ; James Guerrero MD ; Vaughn Rosenthal MD
[2018-02-22] MEDS: Sod Chloride 0.9% Inj 1,000 ML IV.CONT SCH (09:25)
--- NOTE | 2018-02-22 16:21 | HM ---
Date Performed: 02/19/2018 Time Performed: 21:36:00 HOOKUP DATE: 02/19/18 09:36:00 PM [facility] ANALYSIS START TIME: 02/19/2018 9:41:00 PM ANALYSIS END TIME: 02/20/2018 9:21:34 PM PATIENT AGE: 82 PATIENT HEIGHT PATIENT WEIGHT DRUG LIST PATIENT DIAGNOSIS: PHARYNGEAL MASS TEST NARRATIVE: The patient's average heart rate was 59 BPM. No episodes of tachycardia wer e noted. Heart rates less than 50 BPM were noted 29% of the time. 103 pauses exceeding 2.0 seco nds were noted. The longest pause of 2.2 seconds occurred at 09:57:55 AM Fri. 513 ventricular ect opics, which represented 1% of the total beat count, were noted. The highest ventricular ectopic rob quency occurred from 03:00 PM to 04:00 PM Fri. During this time 148 VE(s) occurred. Ventricular ect opics were observed as 496 isolated beat(s), as 7 couplet(s) and as 1 run(s). 196 supraventricula r ectopics, which represented < 1% of the total beat count, were noted. The highest supraventricular ectopic frequency occurred from 11:00 AM to 12:00 PM Fri. During this time 17 SVE(s) occurred. No episodes of ST depression (defined as -1.0 mm or more) were noted in channel 1. In channel 2, a s kate episode of ST depression (defined as -1.0 mm or more) occurred at 03:17:46 PM Fri with a maximu m depression of -1.9 mm. In channel 3, a single episode of ST depression (defined as -1.0 mm or more ) occurred at 03:14:24 PM Fri with a maximum depression of -1.7 mm. TEST INTERPRETATION: Patient has frequent pauses numbering 103 that exceeded 2 seconds and gener ally were between 2.0 and 2.2 seconds. All of these pauses appear to be related to blocked premature atrial beats which are evident with P waves in the end of the T-wave or just beyond. No other more hi gh-grade blockage is seen. There is a general bradycardia with heart rate of 59 and heart rate is enoc ewhat slower than that at times, especially during the nighttime hours. Some ventricular ectopy is pr esent with rare couplets and one run of 3 PVCs, but at a slow rate in the 80's on average. No other m ore complex atrial or ventricular arrhythmias are present. Overall this patient probably has some deg ree of sick sinus syndrome. NC interval is generally about .20. There are occasional blocked PACs pre sent accounting for the pauses with no evidence of Mobitz or other second degree AV block. Signed by : Rafal Chopra
== END 2018-02-22 10:43 | disposition home or self-care (01) ==
LOC: NEPD 15:54 → INTOOBSV 20:04 → NEDA 20:04 → NEPGCP 22:29
PROVIDERS: ADMIT Family Medicine; ATTEND Family Medicine